=== PATIENT | male | born 1945 | race Caucasian/White ===

== ENCOUNTER 2019-07-12 06:27 | Inpatient (IN) | payer MEDICARE, OTHER ==
[2019-07-12 07:08] LABS: #Basophils 0.1 thou/uL (0.0-0.2); #Eosinphils 0.6 thou/uL (0.0-0.7); #Lymphocytes 1.7 thou/uL (1.20-3.40); #Monocytes 1.1 thou/uL (0.11-0.59); #Neutrophils 9.5 thou/uL (1.40-6.50); %Basophils 0.6 % (0.0-1.0); %Eosinophils 4.4 % (0.0-10.0); %Lymphocytes 13.4 % (21.0-51.0); %Monocytes 8.5 % (0.0-10.0); %Neutrophils 73.1 % (42.0-75.0); Hemoglobin 10.3 g/dL (14.0-18.0); Mean Corpuscular HGB CONC 31.5 g/dL (32.0-36.0); Mean Corpuscular Hemoglobin 27.7 pg (27.0-31.0); Mean Platelet Volume 7.1 fL (7.4-10.4); Platelet Count 400 thou/uL (130-400); Red Blood Cell (RBC) Count 3.73 mill/uL (4.70-6.10)
[2019-07-12 07:28] LABS: ALT (SGPT) 10 U/L (8-55); AST (SGOT) 15 U/L (5-34); Albumin 3.7 g/dL (3.4-4.8); Alkaline Phosphatase 116 U/L (40-110); Anion Gap 12 mmol/L (10-20); BUN (Urea Nitrogen) 26 mg/dL (8.4-25.7); Bilirubin, Total 0.5 mg/dL (0.2-1.2); Calc. Creatinine Clearance 0 mL/min (70-130); Carbon Dioxide 26 mmol/L (23-31); Chloride 102 mmol/L (98-107); Estimated GFR-MDRD 45; Globulin 3.8 g/dL (2.4-3.5); Glucose 106 mg/dL (83-110); Lipase 17 U/L (8-78); Potassium 4.7 mmol/L (3.5-5.1); Protein, Total 7.5 g/dL (5.8-8.1); Sodium 135 mmol/L (136-145)
[2019-07-12 07:33] LABS: Calcium 14.4 mg/dL (7.8-10.44)
[2019-07-12 08:13] LABS: Clarity Turbid (Clear); Leukocyte Unable to Interpret Leu/uL (Negative)
[2019-07-12 08:14] LABS: Bilirubin Unable to Interpret (Negative); Blood, Urine Unable to Interpret (Negative); Glucose, Urine (Dipstick) Unable to Interpret mg/dL (Negative); Nitrite Unable to Interpret (Negative); Protein, Urine (Dipstick) Unable to Interpret mg/dL (Neg-Trace); Urobilinogen UNABLE TO INTERPRET mg/dL (Less than 2)
[2019-07-12 08:18] LABS: Bacteria/HPF None Seen HPF (None Seen); RBC/HPF Greater than 50 HPF (0-3); Squamous Epithelial 0-3 HPF (0-3)
--- NOTE | 2019-07-12 08:50 | PDOC.FPRHP ---
- History of Present Illness Chief Complaint: Abdominal pain, Hematuria, Hematochezia History of Present Illness: Patient is a 74 yo male who presented to the [facility] ED earlier today with complaint of lower abdominal pain ongoing for 2 weeks. For the past several days he has also noted gil blood when he urinates as well as bright red blood with bowel movements. Denies dysuria but states he does not feel his bladder fully empties. He notes weakness, fatigue over the last few weeks with one fall. He has history of a prostatectomy 14 years ago. He has seen Dr. Brower for urinary incontinence as was set to see him at the beginning of August. PCP: [facility] ED Course: In the ED the pt was found to have a Hgb ~10. He was found to have liver, bladder, renal masses. - Allergies/Adverse Reactions Allergies Allergy/AdvReac Type Severity Reaction Status Date / Time No Known Allergies Allergy Verified 12/04/12 15:10 - Home Medications Medication Instructions Recorded Confirmed Type Esomeprazole Magnesium [Nexium] 40 mg PO DAILY 12/04/12 07/12/19 History Simvastatin [Zocor] 40 mg PO HS 12/04/12 07/12/19 History Fexofenadine HCl [Swetha] 180 mg PO DAILY PRN 05/03/13 07/12/19 History Glucosam/Daniel-Col.Cplx/D3/C/Mn 1 cap PO DAILY 05/03/13 07/12/19 History [Xvbcrbybdnd-Qhauweymszu-Y8 Cap] Multivitamin [Multivitamins] 1 cap PO DAILY 05/03/13 07/12/19 History Naproxen 250 mg PO BID PRN 05/03/13 07/12/19 History Eldora-3S/DHA/EPA/Fish Oil [Fish 1 cap PO DAILY 05/03/13 07/12/19 History Oil 1,200 mg Softgel] Ventolin HFA Inhaler [Proventil 1 puff INH Q4HR PRN 05/03/13 07/12/19 History HFA Inhaler] Furosemide [Lasix] 20 mg PO DAILY 07/12/19 07/12/19 History Potassium Chloride 10 meq PO DAILY 07/12/19 07/12/19 History - History PMHx: HTN, HLD, GERD, Anxiety PSHx: Cervical fusion & Laminectomy in April 2013; bilateral cataracts, abdominal hernia repair, open prostatectomy FHx: Mother - lung cancer w/o hx of smoking Social: Former smoker, denies EtOH or illicit drug use - Review of Systems General: reports: weight/appetite/sleep changes. denies: fever/chills Eyes: denies: eye pain, vision changes ENT: denies: nasal congestion, rhinorrhea Respiratory: denies: cough, congestion, shortness of breath Cardiovascular: denies: chest pain, palpitation, edema Gastrointestinal: reports: nausea, constipation, abdominal pain. denies: vomiting, diarrhea Genitourinary: reports: incontinence. denies: dysuria Skin: denies: rashes, lesions Musculoskeletal: denies: pain, tenderness Neurological: reports: numbness, weakness - Vital signs BP: 159/94 HR: 92 RR: 16 Tmax: 98.2 Pox: 99% on RA Wt: 93 kg - Physical Exam Constitutional: NAD, awake, alert and oriented HEENT: normocephalic and atraumatic, PERRLA, EOMI Neck: no LAD, no JVD Heart: RRR, normal S1/S2, no edema Lungs: CTAB, no respiratory distress, good air movement Abdomen: soft, bowel sounds present, no masses/distention -Abdomen: suprapubic tenderness Musculoskeletal: normal tone, ROM grossly normal Neurological: no focal deficit, CN II-XII intact Skin: no rash/lesions, good turgor Heme/Lymphatic: no purpura, no petechia Psychiatric: normal mood and affect, good judgment and insight FMR H&P: Results - Labs Result Diagrams: 07/12/19 12:13 07/12/19 06:58 Lab results: WBC 13.0 thou/uL (4.8-10.8) H 07/12/19 06:58 Hgb 10.3 g/dL (14.0-18.0) L 07/12/19 06:58 Hct 32.8 % (42.0-52.0) L 07/12/19 06:58 MCV 88.0 fL (78.0-98.0) 07/12/19 06:58 Plt Count 400 thou/uL (130-400) 07/12/19 06:58 Neutrophils % 73.1 % (42.0-75.0) 07/12/19 06:58 Sodium 135 mmol/L (136-145) L 07/12/19 06:58 Potassium 4.7 mmol/L (3.5-5.1) 07/12/19 06:58 Chloride 102 mmol/L (98-107) 07/12/19 06:58 Carbon Dioxide 26 mmol/L (23-31) 07/12/19 06:58 BUN 26 mg/dL (8.4-25.7) H 07/12/19 06:58 Creatinine 1.53 mg/dL (0.7-1.3) H 07/12/19 06:58 Glucose 106 mg/dL (83-110) 07/12/19 06:58 Calcium 14.4 mg/dL (7.8-10.44) H* 07/12/19 06:58 Total Bilirubin 0.5 mg/dL (0.2-1.2) 07/12/19 06:58 AST 15 U/L (5-34) 07/12/19 06:58 ALT 10 U/L (8-55) 07/12/19 06:58 Alkaline Phosphatase 116 U/L (40-110) H 07/12/19 06:58 Serum Total Protein 7.5 g/dL (5.8-8.1) 07/12/19 06:58 Albumin 3.7 g/dL (3.4-4.8) 07/12/19 06:58 Lipase 17 U/L (8-78) 07/12/19 06:58 Urine Ketones Unable to Interpret mg/dL (Negative) 07/12/19 07:22 Urine Blood Unable to Interpret (Negative) 07/12/19 07:22 Urine Nitrite Unable to Interpret (Negative) 07/12/19 07:22 Ur Leukocyte Esterase Unable to Interpret Romel/uL (Negative) 07/12/19 07:22 Urine RBC Greater than 50 HPF (0-3) A 07/12/19 07:22 Urine WBC 4-6 HPF (0-3) A 07/12/19 07:22 Ur Squamous Epith Cells 0-3 HPF (0-3) 07/12/19 07:22 Urine Bacteria None Seen HPF (None Seen) 07/12/19 07:22 - Radiology Interpretation CT scan - abdomen Status: image reviewed by me, report reviewed by me (invasive renal cell carcinoma with possible thrombus in vein) FMR H&P: A/P - Problem List (1) Renal mass Current Visit: Yes Status: Acute Code(s): N28.89 - OTHER SPECIFIED DISORDERS OF KIDNEY AND URETER (2) Hypertension Current Visit: Yes Status: Acute Code(s): I10 - ESSENTIAL (PRIMARY) HYPERTENSION Qualifiers: Hypertension type: essential hypertension Qualified Code(s): I10 - Essential (primary) hypertension (3) Acute blood loss anemia Current Visit: Yes Status: Acute Code(s): D62 - ACUTE POSTHEMORRHAGIC ANEMIA (4) Hematuria Current Visit: Yes Status: Acute Code(s): R31.9 - HEMATURIA, UNSPECIFIED (5) Hematochezia Current Visit: Yes Status: Acute Code(s): K92.1 - MELENA (6) Hypercalcemia of malignancy Current Visit: Yes Status: Acute Code(s): E83.52 - HYPERCALCEMIA - Plan Patient is a 74 yo male who presents with abdominal pain, hematuria, and hematochezia is found to have renal mass highly suspicious for malignancy: #Renal Mass, right -highly suspicious for invasive renal cell carcinoma -CT abd/pelvis: renal masses bilaterally with thrombus extension in renal vein -Consult Urology: he is known to Dr. Brower although he is not residential collections, appreciate rec's -Pt has seen Dr. Brian Brower, Urologist in the past, will try to contact office for records -Consult Onc: appreciate rec's -Lactic acid WNL -WBC 13.0; UA with gil blood, >50 RBCs -BUN 26, Cr 1.53 -monitor AM CMP # Gil blood per penis -Follow up with urology as pt has hx of urethral strictures and prostatectomy #Anemia -reports Hematuria, Hematochezia -likely 2/2 above -admission H/H is 10.3/32.8, MCV 88 -plan to type & screen -monitor serial H/H - replace as needed #Hypercalcemia -admission Ca 14.4 -monitor with serial AM labs, PTH pending, administer Zoledronic acid if elevated after fluids given -likely due to malignancy -NS 200 mls/hr #YEIMI vs CKD -monitor, fluids -repeat labs in am #Hypertension -continue lisinopril -held lasix, potassium as he has noted filled prescription #GERD -continue home meds #Anxiety -continue home meds #HLD - continue home meds Diet: HH diet VTE: SCDs, hold anticoagulation pending surgical eval Code status: PCP: none Dispo: Stable, admit to inpatient on oncology unit. Plan to consult Urology and Onc, appreciate recs. Anticipate LOS >48 hrs. FMR H&P: Upper Level - Plan Date/Time: 07/12/19 0849 IRocío, DO, have evaluated this patient and agree with findings/plan as outlined by international banker resident. Pertinent changes/additions are listed here. Pt is a 74 yo M with PMH of prostate cancer s/p radical prostatectomy, HTN, HLD , presenting for 2wk of fatigue and several days of constipation with onset of hematuria today. In the ED, large renal mass is seen concerning for new malignancy. VS: T98.6, P76, R18, O296%RA, BP148/93 PE: Gen: NAD HEENT: Moist MM, no LAD Heart: RRR, no murmurs or extra sounds. Distal pulses 2+ Lungs: CTAB, no wheezing. No increased work of breathing Abd: soft, nontender, BS+ Ext: no cyanosis or edema Skin: no rashes Psych: AOx3 Pertinent Labs/Imaging: WBC- 13.0 H/H- 10.3/32.8 BUN/Cr- 26/1.53, GFR 45 Ca 14.4 Alk Phos 116 UA: Red, turbid, Greater than 50 RBC CTabd: Findings highly suspicious for b/l renal cell carcinomas with tumor thrombus in R renal vein, inferior vena cava, and R renal pelvis. 18mm low density lesion in the liver is suspicious and bladder masses suspicious for malignancy. 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 with gross Hematuria: -H/H 10, nursing reports gil bleeding upon standing, will get stat H/H and type and cross 2 units -consult oncology and urology for treatment options -attempt double lumen smith by nursing staff for possible CBI but does have hx of urethral stricture and radical prostatectomy so may need urology placement Hypercalcemia 2/2 Malignancy: -corrected calcium 14.4 -1L NS ordered in ED, NS @ 200ml/hr -consider Zolendronic Acid x1 dose -Serial Ca YEIMI vs CKD: -FeUrea to help determine prerenal vs intrinsic HTN: -awaiting med rec -hold home meds for now with bleeding and monitor BP HLD: -awaiting med rec -continue home meds Dispo: stable now but guarded prognosis, place inpatient, likely >48h stay DVT PPx: SCD GI PPx: none Addendum - Attending - Attending Attestation Date/Time: 07/12/19 1440 I personally evaluated the patient and discussed the management with Dr. Franco /Naseem. I agree with the History, Examination, Assessment and Plan documented above with any addition or exceptions noted below. MRI brain and CT chest w/ contrast for staging. suspect renal cell carcinoma with heavy metastatic burden. I suspect he has bone mets somewhere given his hyper calcemia.Will continue NS and recheck calcium this afternoon. If not responding, will give zolondronic acid. Urology and Heme/Onc consulted. Will also consult palliative care. Awaiting recommendations.
[2019-07-12 09:13] LABS: INR-International Normal Ratio 1.1; PTT 30.8 sec (22.9-36.1); Prothrombin Time 14.6 sec (12.0-14.7)
--- NOTE | 2019-07-12 09:26 | CT ---
CT ABDOMEN AND PELVIS WITH IV CONTRAST: HISTORY: Lower abdominal pain, hematuria, bright red rectal bleeding. FINDINGS: There is evidence of old granulomatous disease in the visualized portions of the chest. Mild depende nt changes are noted in the lung bases posteriorly. There are calcified granulomas in the liver and spleen. There is a low-density 18 mm lesion in the anterior aspect of the left lobe of the liver whi ch does not meet CT criteria for a simple cyst. No calcified gallstones are seen. The pancreas and left adrenal gland are normal. There is an 11 x 11 x 14 cm heterogeneously enhancing mass arising from the superior pole of the righ t kidney. Tumor thrombus extends into the right renal vein, IVC, and the right renal pelvis. No def inite involvement of the right adrenal gland is seen. There are cysts in the right kidney. Also not ed is an enhancing mass in the inferior aspect of the left kidney measuring 4 x 3.5 x 5 cm. No hydro ureteral nephrosis is seen on either side. There is a 3.5 cm mass arising from the right posterior w all of the urinary bladder and 7 mm thickening of the posterior wall of the urinary bladder. There i s a fat plane within the rectum and the posterior all of the urinary bladder is not definitely seen. No free air, free fluid, or lymphadenopathy is seen in the abdomen or pelvis. The small bowel loops are not abnormally dilated. There is fecal material in the colon and rectum. There is colonic dive rticulosis. There are postop changes in the lower abdomen and pelvis. A small left fat-containing i nguinal hernia is present. There are degenerative changes in the spine. There are pars articularis defects at the L5 level with grade I anterolisthesis of L5 over S1. No destructive bony lesions are identified. IMPRESSION: 1. Findings are highly suspicious for bilateral renal cell carcinomas with tumor thrombus in the rig ht renal vein, inferior vena cava, and the right renal pelvis. 2. An 18 mm low-density lesion in the liver is suspicious. 3. Bladder masses are suspicious for malignancy. 4. Colonic diverticulosis. 5. Old granulomatous disease. 6. Right renal cysts. Findings are reported to Dr. Wilkins in the emergency room at 8:38 a.m. [facility] [place] [facility]
[2019-07-12] MEDS ORDERED: Iopamidol 370 76% 100 ML VIAL ONE (10:05)
[2019-07-12] MEDS ORDERED: Ondansetron PF 4 MG/2 ML Vial IVP PRN (11:38)
[2019-07-12] MEDS ORDERED: Calcium Carbonate 500 MG ChewTAB PO PRN (11:38)
[2019-07-12 11:47] VITALS: BMI 31.4
[2019-07-12] MEDS ORDERED: Lactated Ringer's 1,000 ML IV SCH (12:00)
[2019-07-12 12:19] LABS: Hemoglobin 11.1 g/dL (14.0-18.0)
[2019-07-12] MEDS ORDERED: Sodium Bicarbonate 2.5 MEQ/5 ML VIAL ONE (15:31)
[2019-07-12] MEDS: Sodium Chloride 0.9% 1,000 ML IV SCH ×3 (15:45→23:59)
[2019-07-12 16:29] LABS: Hemoglobin 11.4 g/dL (14.0-18.0)
[2019-07-12 16:52] LABS: Anion Gap 15 mmol/L (10-20); Calc. Creatinine Clearance 54 mL/min (70-130); Carbon Dioxide 22 mmol/L (23-31); Chloride 103 mmol/L (98-107); Estimated GFR-MDRD 45; Glucose 93 mg/dL (83-110); Potassium 4.5 mmol/L (3.5-5.1); Sodium 135 mmol/L (136-145)
--- NOTE | 2019-07-12 16:52 | CT ---
CT-guided right kidney mass biopsy HISTORY: Large right kidney mass. FINDINGS: After explaining the procedure and answering all questions, limited CT imaging was performe d with the patient prone. Sterile technique, buffered local anesthesia, CT guidance, and a right posterior approach were used t o carefully advance the tip of a 17-gauge trocar needle into the lateral aspect of the large right renal mass. Position was confirmed with CT. A total of 4 18-gauge core biopsy specimens were obtained and submitted to Dr. Granger from pathology who confirmed specimen adequacy. Needle was removed. No evidence of complication. Patient tolerated the procedure well and was returne d in unchanged condition. IMPRESSION : Technically successful right renal mass biopsy. Pathology is pending.
[2019-07-12 17:01] LABS: BUN (Urea Nitrogen) 24 mg/dL (8.4-25.7)
[2019-07-12] MEDS ORDERED: Zoledronic Acid 4 MG in Sodium Chloride 0.9% 100 ML IVPB SCH (17:30)
--- NOTE | 2019-07-12 18:19 | PRG ---
DATE OF SERVICE: 07/12/2019 PROCEDURE: Holbrook catheter placement CHIEF COMPLAINT: Urinary retention. Under sterile conditions, an 18-Vietnamese Holbrook catheter was carefully guided through the urethra and with some difficulty passed through what I presume is a bladder neck contracture. The bladder was then entered and light red urine drained. I completely drained the bladder and then irrigated with about 200 mL of sterile water. I do not irrigate out any clots. The patient tells me that he did urinate out a few clots throughout the afternoon. 10 mL were instilled in the Holbrook balloon. It was connected to bag drainage. Job ID: [id number]
[2019-07-12] MEDS: Atorvastatin Calcium 20 MG TAB PO SCH (20:35)
--- NOTE | 2019-07-13 00:24 | CON ---
DATE OF CONSULTATION: 07/12/2019 REASON FOR CONSULT: Renal mass. CHIEF COMPLAINT: Abdominal pain. HISTORY OF PRESENT ILLNESS: This is a 74-year-old male, who I have seen recently in my office for history of radical prostatectomy at [facility] for prostate cancer about 14 years ago. He seems to have developed a slight bladder neck contracture. However, I was able to easily pass an 18-Korean catheter at his first visit and he passed a void trial at his second visit without issue. He had followup planned for August 07. He has been admitted to the hospital after developing right-sided abdominal pain over the last few weeks and culminating an episode of gross hematuria this morning. He endorses mild nausea but denies chest pains, headaches, fevers. He does endorse loss of appetite and weight loss recently. CT scan in the emergency room shows a large right renal mass with IVC involvement and what appears to be three small masses in the left kidney. He may also have masses in his bladder, although this is more likely blood clot. PAST MEDICAL HISTORY: Hypertension, reflux, anxiety, prostate cancer. PAST SURGICAL HISTORY: Cervical fusion and laminectomy, cataracts, abdominal hernia repair, prostatectomy. HOME MEDICATIONS: Reviewed. No pertinent urology medications. ALLERGIES: NO KNOWN ALLERGIES. FAMILY HISTORY: Reviewed, noncontributory. SOCIAL HISTORY: Former smoker. No substance abuse. REVIEW OF SYSTEMS: Ten-point review of systems is negative except as mentioned in my HPI. PHYSICAL EXAMINATION: VITAL SIGNS: Afebrile, slightly hypertensive, otherwise vitals are stable. GENERAL: No acute distress, conversant. HEENT: Head, normocephalic and atraumatic. Eyes; extraocular movements intact. Sclerae are nonicteric. NECK: Supple. Trachea midline. HEART: Regular rate and rhythm. Breathing unlabored. Symmetric chest expansion. ABDOMEN: Soft, tender over right side with palpable mass, nondistended. : Normal phallus, testicles present in scrotum. No blood at meatus. No flank tenderness. SKIN: Warm and dry. NEUROLOGIC: Alert and oriented x3. EXTREMITIES: Without clubbing, cyanosis, or edema. PSYCHIATRIC: Normal mood and affect. LABORATORY DATA: Hemoglobin 10.3 on admission, 11.4 repeated this afternoon. Chemistry, creatinine 1.53, potassium normal, calcium elevated at 14.0. Postvoid bladder scan 328. IMAGING: CT reviewed showing large right renal mass with clot in the renal pelvis and thrombus extending through the renal vein into the IVC. There are two or three distinct masses in the left kidney, two in the inferior pole and one possible in the superior pole. Two masses in the bladder, possibly blood clot. Small lesion in the liver. ASSESSMENT: Neoplasm of uncertain behavior of the right and left kidneys, likely renal cell carcinoma, gross hematuria, bladder tumors, history of prostatectomy, bladder neck contracture, urinary retention, hypercalcemia. PLAN: I have ordered a CT of the head and chest, as well as bone scan to complete imaging workup. I have also arranged for a renal biopsy to be performed. The patient will likely require targeted therapy versus immunotherapy depending on the biopsy results from today. He will require GI consult for his rectal bleeding. Holbrook catheter was placed, which will be dictated separately. This will remain for at least a few days. Cystoscopy to be performed in an outpatient setting, I think bladder tumor is unlikely, especially given his gross hematuria and blood clots. Given that he has bilateral renal masses, surgical intervention will likely require referral to tertiary center given the extreme complexity of the case. I have coordinated care with Dr. Peng and communicated my plan to the admitting physician service. TIME SPENT: Greater than 90 minutes spent in the patient's care. Job ID: [id number] MTDD
[2019-07-13] MEDS: Acetaminophen 325 MG TAB PO PRN ×3 (00:50→20:06)
[2019-07-13 03:40] LABS: #Eosinphils 0.5 thou/uL (0.0-0.7); #Lymphocytes 1.8 thou/uL (1.20-3.40); #Monocytes 0.9 thou/uL (0.11-0.59); #Neutrophils 9.4 thou/uL (1.40-6.50); %Basophils 0.4 % (0.0-1.0); %Lymphocytes 14.2 % (21.0-51.0); %Monocytes 7.4 % (0.0-10.0); Hemoglobin 9.7 g/dL (14.0-18.0); Mean Corpuscular HGB CONC 32.3 g/dL (32.0-36.0); Mean Corpuscular Hemoglobin 28.1 pg (27.0-31.0); Mean Platelet Volume 7.2 fL (7.4-10.4); Platelet Count 360 thou/uL (130-400); RBC Distribution Width 13.8 % (11.5-14.5); Red Blood Cell (RBC) Count 3.46 mill/uL (4.70-6.10); White Blood Cell (WBC) Count 12.7 thou/uL (4.8-10.8)
[2019-07-13 04:09] LABS: ALT (SGPT) 10 U/L (8-55); AST (SGOT) 15 U/L (5-34); Albumin 3.2 g/dL (3.4-4.8); Alkaline Phosphatase 101 U/L (40-110); Anion Gap 11 mmol/L (10-20); BUN (Urea Nitrogen) 24 mg/dL (8.4-25.7); Bilirubin, Total 0.5 mg/dL (0.2-1.2); Calc. Creatinine Clearance 54 mL/min (70-130); Carbon Dioxide 24 mmol/L (23-31); Chloride 106 mmol/L (98-107); Estimated GFR-MDRD 44; Globulin 3.3 g/dL (2.4-3.5); Glucose 94 mg/dL (83-110); Potassium 4.5 mmol/L (3.5-5.1); Protein, Total 6.5 g/dL (5.8-8.1); Sodium 136 mmol/L (136-145)
[2019-07-13 04:27] LABS: Calcium 12.1 mg/dL (7.8-10.44)
[2019-07-13] MEDS: Sodium Chloride 0.9% 1,000 ML IV SCH ×5 (05:10→19:59)
--- NOTE | 2019-07-13 06:17 | PDOC.FM ---
- Subjective Subjective: Pt is unchanged from yesterday. He received his biopsy, pending results. He had good urine output. He has not had a BM as of yet but did have a desire today. - Objective Vital Signs & Weight: Vital Signs (12 hours) Temp Pulse Resp BP Pulse Ox 07/13/19 05:00 138/67 07/13/19 03:59 98.1 F 83 16 151/73 H 93 L 07/12/19 23:57 98.7 F 84 16 142/67 H 95 07/12/19 20:00 94 L 07/12/19 19:00 98.6 F 89 18 140/71 94 L Weight Weight 90.855 kg I&O: 07/11/19 07/12/19 07/13/19 06:59 06:59 06:59 Intake Total 3670 Output Total 1850 Balance 1820 Result Diagrams: 07/13/19 03:21 07/13/19 03:21 Phys Exam - Physical Examination Constitutional: NAD HEENT: moist MMs, sclera anicteric no respiratory distress, no wheezing Neurological: non-focal, moves all 4 limbs Psychiatric: normal affect, A&O x 3 Skin: no rash, normal turgor Dx/Plan (1) Renal mass Code(s): N28.89 - OTHER SPECIFIED DISORDERS OF KIDNEY AND URETER Status: Acute (2) Hypertension Code(s): I10 - ESSENTIAL (PRIMARY) HYPERTENSION Status: Acute Qualifiers: Hypertension type: essential hypertension Qualified Code(s): I10 - Essential (primary) hypertension (3) Acute blood loss anemia Code(s): D62 - ACUTE POSTHEMORRHAGIC ANEMIA Status: Acute (4) Hematuria Code(s): R31.9 - HEMATURIA, UNSPECIFIED Status: Acute (5) Hematochezia Code(s): K92.1 - MELENA Status: Acute (6) Hypercalcemia of malignancy Code(s): E83.52 - HYPERCALCEMIA Status: Acute - Plan Plan: Patient is a 74 yo male who presents with abdominal pain, hematuria, and hematochezia is found to have renal mass highly suspicious for malignancy: # Renal Mass, right > left # 18 mm Liver Lesion -highly suspicious for invasive renal cell carcinoma -CT abd/pelvis: renal masses bilaterally with thrombus extension in renal vein -Consult Urology: he is known to Dr. Brower- pending biopsy results. He potentially will need referral to tertiary center. Dr. Brower has been in contact with Dr. Peng. -Consult Onc: appreciate rec's -Lactic acid WNL -WBC 13.0; UA with gil blood, >50 RBCs -BUN 26, Cr 1.53 -monitor AM CMP # Gil blood per penis -Urology believes bladder lesion seen on CT is clot -smith placed #Hematochezia -pending SAADIA, GI consult; appreciate recs # Normocytic Anemia likely 2/2 malignancy -admission H/H is 10.3/32.8, MCV 88. Pt has been type and screen but repeat H/H did not show decrease. -iron deficiency iron and anemia of chronic disease based on labs # Hypercalcemia -admission Ca 14.4 -> 12.0 -Zoledronic acid given yesterday, continue with fluids # YEIMI vs CKD -monitor, fluids - not improved with fluids. Could be pt's baseline. -repeat labs in am # Hypertension -held lisinopril with YEIMI -held lasix, potassium as he has noted filled prescription # GERD -continue home meds # Anxiety -continue home meds # HLD - continue home meds Diet: HH diet VTE: SCDs, hold anticoagulation pending surgical eval Code status: DNR PCP: none Dispo: Stable, admit to inpatient on oncology unit Anticipate LOS >48 hrs. Addendum - Attending - Attending Attestation Date/Time: 07/13/19 0187 I personally evaluated the patient and discussed the management with Dr. Franco. I agree with the History, Examination, Assessment and Plan documented above with any addition or exceptions noted below. Biopsy yesterday. awaiting path. GI consult today per Urology to evaluate for colonic involvement.
[2019-07-13 07:36] LABS: Iron 22 ug/dL (65-175); Iron Binding Capacity, Total 240 mcg/dL (261-462)
[2019-07-13 08:06] LABS: Ferritin 382.01 ng/mL (22-322)
[2019-07-13] MEDS ORDERED: [UNRECOGNIZED DRUG - OTHER] PO SCH (09:00)
[2019-07-13] MEDS: Fish Oil 1,000 MG CAP PO SCH (09:33)
[2019-07-13] MEDS: Senokot S 8.6-50 MG TAB PO PRN (09:33)
[2019-07-13] MEDS: Multivit, Therapeutic 1 TAB PO SCH (09:33)
[2019-07-13] MEDS ORDERED: Iopamidol 370 76% 100 ML VIAL ONE (10:12)
--- NOTE | 2019-07-13 10:43 | CT ---
CT HEAD WITH AND WITHOUT CONTRAST: Date: 07/13/2019 INDICATION: Renal carcinoma staging. History of renal cancer. Assess for metastasis. No comparison. FINDINGS: There is mild cortical volume loss. No evidence of intracranial hemorrhage seen on the precontrast st udy. There is no evidence of mass or infarct. No abnormal enhancement identified on postcontrast study. The paranasal sinuses appear clear. The bony calvarium is unremarkable. IMPRESSION: 1. No acute process. No evidence of metastatic lesion seen by CT. 2. MRI with and without contrast is a more sensitive exam if brain metastasis is suspected. POS: AGW
--- NOTE | 2019-07-13 10:52 | PRG ---
DATE OF SERVICE: 07/13/2019 CHIEF COMPLAINT: Right-sided abdominal pain. SUBJECTIVE: No acute changes overnight. The patient reports pain from the renal biopsy site, which was performed yesterday about 3 to 4/10 at times. He also endorses nausea and lack of appetite. He denies difficulty breathing, chest pain, bladder pain, or fevers. OBJECTIVE: VITAL SIGNS: Afebrile. Vitals are stable. Good urine output clearing well. GENERAL: No acute distress, conversant. LUNGS: Unlabored breathing, symmetric chest expansion. HEART: Regular rate and rhythm. ABDOMEN: Soft, tender over the right side with palpable mass, nondistended. Right flank tender around the biopsy site. No significant bruising or signs of infection No suprapubic tenderness. Holbrook catheter in good position draining clear urine. EXTREMITIES: Without clubbing, cyanosis, or edema. NEUROLOGIC: Alert and oriented x3. PSYCHIATRIC: Normal mood and affect. LABORATORY DATA: Creatinine stable at 1.5, hemoglobin largely stable at 9.7. IMAGING DATA: The patient has just returned from CT; reports are not available yet. ASSESSMENT: 1. Large right renal mass with IVC involvement. 2. Several small renal mass in the left kidney. 3. Hypercalcemia likely secondary due to malignancy. 4. Rectal bleeding. 5. Chronic kidney disease. PLAN: 1. Awaiting biopsy results. 2. Oncology to see the patient today. 3. Bone scan scheduled for this afternoon. 4. Holbrook catheter will remain until late next week. At this point he will need cystoscopy performed to evaluate the bladder neck to check to make sure that the masses seen on CT were indeed blood clots vs tumors. 5. There is likely no role for surgical intervention at this juncture. The patient will require targeted therapy versus immunotherapy. Due to the complexity of the case with bilateral renal masses and the need for right radical nephrectomy with IVC thrombectomy, the patient will be referred to MD Cobian when time comes for surgical consideration. Job ID: [id number] [facility]
--- NOTE | 2019-07-13 10:57 | CT ---
CT CHEST WITH CONTRAST: INDICATION: Renal cell carcinoma. Assess for metastasis. FINDINGS: The lungs are well aerated and clear. There is no evidence of pulmonary nodule or mass. There is a calcified granuloma in the anterior right mid lung field. The mediastinum is unremarkable. Small calcified mediastinal and right hilar lymph nodes are seen in dicating a prior granulomatous process. No axillary adenopathy. The osseous structures appear unremarkable. There are pedicle screws in the lower cervical and upper thoracic spine. IMPRESSION: 1. Evidence of prior granulomatous process. 2. No evidence of pulmonary metastasis. POS: AGW
[2019-07-13] MEDS ORDERED: Prevnar 13-Val Conj/PF 0.5 ML SYRINGE IM ONE (12:30)
[2019-07-13 13:42] LABS: Creatinine, Urine 57.76 mg/dL (63-166)
--- NOTE | 2019-07-13 14:21 | CT ---
CT-guided right kidney mass biopsy HISTORY: Large right kidney mass. FINDINGS: After explaining the procedure and answering all questions, limited CT imaging was performe d with the patient prone. Sterile technique, buffered local anesthesia, CT guidance, and a right posterior approach were used t o carefully advance the tip of a 17-gauge trocar needle into the lateral aspect of the large right renal mass. Position was confirmed with CT. A total of 4 18-gauge core biopsy specimens were obtained and submitted to Dr. Granger from pathology who confirmed specimen adequacy. Needle was removed. No evidence of complication. Patient tolerated the procedure well and was returne d in unchanged condition. IMPRESSION : Technically successful right renal mass biopsy. Pathology is pending. Transcribed Date/Time: 07/13/2019 2:21 PM
--- NOTE | 2019-07-13 15:07 | NM ---
Radionucleotide bone scan HISTORY: Renal cell carcinoma. Staging. History of prostate cancer. FINDINGS: Physiologic uptake of radiotracer. Degenerative type uptake at the shoulders, sternoclavicu lar joints, knees, and ankles. Photopenic defect of the mouth suggests dental hardware. No pathologic areas of activity. IMPRESSION : No scintigraphic evidence of osteoblastic metastases.
--- NOTE | 2019-07-13 17:35 | CON ---
DATE OF CONSULTATION: REASON FOR CONSULTATION: Renal mass. HISTORY OF PRESENT ILLNESS: Mr. Moscoso is a 74-year-old gentleman with past medical history of prostate cancer and radical prostatectomy at [facility]. He presented to the emergency room yesterday for gross hematuria, nausea, and fatigue. He had some weight loss, although he cannot tell me how much. In the emergency room, he underwent a CT scan of the abdomen and pelvis. There was an 11 x 11 x 14 heterogeneous mass in the superior pole of the right kidney. Tumor thrombus extending into the right renal vein, IVC, and the right renal pelvis. There was an enhancing mass in the inferior aspect of the left kidney, measuring 4 x 3.5 x 5 cm. There was no hydronephrosis. There was a 3.5 cm mass in the right posterior wall of the bladder. He was admitted for further workup. Dr. Brower was consulted, who has seen the patient in the past. He underwent a renal biopsy this morning and had a negative brain CT. Chest CT showed no evidence of pulmonary metastasis. He complains of left lower extremity weakness and poor appetite. He has a Holbrook catheter in place, which was with bloody urine. His calcium on admission was elevated at 14.4. His hemoglobin on admission was 10.3 and is trended down to 9.7 today. PAST MEDICAL HISTORY: 1. Prostate cancer. 2. Hypertension. 3. Reflux. 4. Anxiety. PAST SURGICAL HISTORY: 1. Prostatectomy. 2. Cervical fusion and laminectomy. 3. Abdominal hernia repair. 4. Cataract surgery. ALLERGIES: NO KNOWN DRUG ALLERGIES. HOME MEDICATIONS: 1. Nexium. 2. Swetha. 3. Lasix. 4. Fish oil. 5. Potassium. 6. Zocor. 7. Proventil neb. FAMILY HISTORY: Mother had lung cancer. SOCIAL HISTORY: Former smoker. No alcohol or illicit drug use. REVIEW OF SYSTEMS: A 10-point review of systems is negative except for noted in HPI. PHYSICAL EXAMINATION: VITAL SIGNS: Temperature 98.1, pulse is 100, respiratory rate 18, BP is 144/76, and he is 97% on room air. GENERAL: This is a well-developed, well-nourished male, in no acute distress. HEENT: Normocephalic and atraumatic. Pupils equal and reactive to light. NECK: Supple. CV: Regular rate and rhythm. LUNGS: Clear. ABDOMEN: Nontender and soft. Bowel sounds are positive. EXTREMITIES: No clubbing or cyanosis. SKIN: No rash. NEUROLOGIC: Nonfocal. PERTINENT LABORATORY DATA AND X-RAYS: Current WBCs 12.7, hemoglobin 9.7, hematocrit 30.7, and platelet count is 360,000. He has 74% neutrophils and 14% lymphocytes. PT is 14.6, INR is 1.1, and PTT is 30.8. Sodium is 136, potassium 4.5, chloride 106, CO2 is 24, BUN is 24, creatinine is 1.54, and calcium is 12.1. Iron is 22, TIBC is 240, iron saturation is 9, and ferritin is 382. Total bilirubin is 0.5, AST is 15, ALT is 14, alkaline phosphatase is 101, serum total protein 6.5, albumin 3.2, and globulin 3.3. B12 is 550 and folate is 12. Radiology per HPI. ASSESSMENT: 1. Large right renal mass with likely metastatic disease in the left kidney. 2. Gross hematuria. 3. History of prostate cancer with prostatectomy. 4. Hypercalcemia. DISCUSSION: The patient has had a renal biopsy this morning. His chest CT is negative for metastatic disease as well as he has also had a negative brain CT. He is unable to get an MRI secondary to prior laminectomy. He is due for a bone scan to complete staging. He will need close monitoring of his CBC as his hemoglobin is likely to drop given his hematuria. Depending on pathology, he may need chemotherapy versus immunotherapy. Case has been discussed with Dr. Peng who has also discussed the case with Dr. Brower. We will follow along with the patient and the recommendations once final pathology has been admitted. Thank you for the consult. Job ID: [id number]
[2019-07-13 17:38] LABS: Anion Gap 13 mmol/L (10-20); BUN (Urea Nitrogen) 24 mg/dL (8.4-25.7); Calc. Creatinine Clearance 57 mL/min (70-130); Calcium 11.7 mg/dL (7.8-10.44); Carbon Dioxide 21 mmol/L (23-31); Chloride 106 mmol/L (98-107); Estimated GFR-MDRD 47; Glucose 83 mg/dL (83-110); Potassium 4.3 mmol/L (3.5-5.1); Sodium 136 mmol/L (136-145)
[2019-07-13] MEDS: Atorvastatin Calcium 20 MG TAB PO SCH (20:00)
[2019-07-14] MEDS: Sodium Chloride 0.9% 1,000 ML IV SCH (02:45)
[2019-07-14 04:16] LABS: #Eosinphils 0.5 thou/uL (0.0-0.7); #Lymphocytes 0.9 thou/uL (1.20-3.40); #Monocytes 0.3 thou/uL (0.11-0.59); #Neutrophils 9.7 thou/uL (1.40-6.50); %Basophils 0.4 % (0.0-1.0); %Eosinophils 4.2 % (0.0-10.0); %Lymphocytes 7.5 % (21.0-51.0); %Monocytes 2.9 % (0.0-10.0); Hemoglobin 9.2 g/dL (14.0-18.0); Mean Corpuscular HGB CONC 31.3 g/dL (32.0-36.0); Mean Corpuscular Hemoglobin 27.8 pg (27.0-31.0); Mean Corpuscular Volume 88.7 fL (78.0-98.0); Platelet Count 318 thou/uL (130-400); RBC Distribution Width 14.1 % (11.5-14.5); White Blood Cell (WBC) Count 11.4 thou/uL (4.8-10.8)
[2019-07-14 04:35] LABS: ALT (SGPT) 14 U/L (8-55); AST (SGOT) 24 U/L (5-34); Alkaline Phosphatase 131 U/L (40-110); Anion Gap 9 mmol/L (10-20); BUN (Urea Nitrogen) 24 mg/dL (8.4-25.7); Bilirubin, Total 0.4 mg/dL (0.2-1.2); Calc. Creatinine Clearance 54 mL/min (70-130); Calcium 10.5 mg/dL (7.8-10.44); Carbon Dioxide 24 mmol/L (23-31); Chloride 108 mmol/L (98-107); Estimated GFR-MDRD 45; Globulin 3.2 g/dL (2.4-3.5); Glucose 87 mg/dL (83-110); Potassium 3.9 mmol/L (3.5-5.1); Protein, Total 6.2 g/dL (5.8-8.1); Sodium 137 mmol/L (136-145)
--- NOTE | 2019-07-14 06:02 | PDOC.FM ---
- Subjective Subjective: Pt is doing ok. He has back pain at the site of bx. He did not sleep well overnight. He had a temp w/o overt signs of infection. - Objective Vital Signs & Weight: Vital Signs (12 hours) Temp Pulse Resp BP Pulse Ox 07/14/19 00:10 97.6 F 07/13/19 21:39 100.1 F H 07/13/19 20:06 100.9 F H 107 H 16 144/69 H 92 L 07/13/19 20:00 92 L Weight Admit Weight 90.855 kg Weight 90.855 kg I&O: 07/12/19 07/13/19 07/14/19 06:59 06:59 06:59 Intake Total 3670 680 Output Total 1850 1650 Balance 1820 -970 Result Diagrams: 07/14/19 03:45 07/14/19 03:45 Phys Exam - Physical Examination Constitutional: NAD HEENT: PERRLA, moist MMs Neck: no JVD, full ROM Respiratory: no wheezing, clear to auscultation bilateral Cardiovascular: RRR, no significant murmur Gastrointestinal: soft, non-tender, positive bowel sounds mild distention, no signs of infection at site of bx on R back Musculoskeletal: no edema, pulses present Neurological: non-focal, moves all 4 limbs Psychiatric: A&O x 3 Deviation from normal: affect is blunted, he does appear to have a blunted mood Skin: no rash, cap refill <2 seconds Dx/Plan (1) Renal mass Code(s): N28.89 - OTHER SPECIFIED DISORDERS OF KIDNEY AND URETER Status: Acute (2) Hypertension Code(s): I10 - ESSENTIAL (PRIMARY) HYPERTENSION Status: Acute Qualifiers: Hypertension type: essential hypertension Qualified Code(s): I10 - Essential (primary) hypertension (3) Acute blood loss anemia Code(s): D62 - ACUTE POSTHEMORRHAGIC ANEMIA Status: Acute (4) Hematuria Code(s): R31.9 - HEMATURIA, UNSPECIFIED Status: Acute (5) Hematochezia Code(s): K92.1 - MELENA Status: Acute (6) Hypercalcemia of malignancy Code(s): E83.52 - HYPERCALCEMIA Status: Acute - Plan Plan: Patient is a 74 yo male who presents with abdominal pain, hematuria, and hematochezia is found to have renal mass highly suspicious for malignancy: # Renal Mass, right > left # 18 mm Liver Lesion -highly suspicious for invasive renal cell carcinoma -CT abd/pelvis: renal masses bilaterally with thrombus extension in renal vein -Dr. Brower consulted, appreciate recs -Dr. Peng consulted, appreciate recs -Bone scan negative for osteoblastic lesion, CT Head/Chest negative for mets -Pending Renal Bx -Add tramadol for pain, melatonin and benadryl to help with sleep # Hx of Neck Procedures -Flexeril for neck stiffness # Temperature w/ alleviation s/p tylenol in the setting of an elevated WBC -send urine Cx, blood Cx # Sae blood per penis -Urology believes bladder lesion seen on CT is clot -smtih placed #Hematochezia -SAADIA revealed no internal/external hemorrhoids, GI consult; appreciate recs # Normocytic Anemia likely 2/2 malignancy -monitor H/H in setting of hematuria, hematochezia -iron deficiency iron and anemia of chronic disease based on labs #Constipation -continue with senna # Hypercalcemia -improving -Zoledronic acid given 07/11, continue w/ fluids as pt is tolerating # YEIMI vs CKD -monitor, fluids - not improved with fluids. Could be pt's baseline. -repeat labs in am # Hypertension -held lisinopril with YEIMI -held lasix, potassium as he has noted filled prescription # GERD -continue home meds # Anxiety -continue home meds # HLD - continue home meds Diet: HH diet VTE: SCDs, hold anticoagulation pending surgical eval Code status: DNR PCP: none Dispo: Stable, admit to inpatient on oncology unit Anticipate LOS >48 hrs. Addendum - Attending - Attending Attestation Date/Time: 07/14/19 2683 I personally evaluated the patient and discussed the management with Dr. Franco. I agree with the History, Examination, Assessment and Plan documented above with any addition or exceptions noted below. Calcium down trending. Will hold IVF for now. C-scope w/ GI tomorrow. Awaiting path. I think his Cr is at his baseline.
[2019-07-14] MEDS: Acetaminophen 325 MG TAB PO PRN (07:53)
[2019-07-14] MEDS: Multivit, Therapeutic 1 TAB PO SCH (07:54)
[2019-07-14] MEDS: Fish Oil 1,000 MG CAP PO SCH (07:54)
[2019-07-14] MEDS: Ondansetron ODT 4 MG TAB PO PRN (07:55)
[2019-07-14] MEDS ORDERED: diphenhydrAMINE 25 MG CAP PO PRN (07:59)
[2019-07-14] MEDS ORDERED: traMADol HCl 50 MG TAB PO PRN (07:59)
--- NOTE | 2019-07-14 09:26 | CON ---
DATE OF CONSULTATION: 07/13/2019 REASON FOR CONSULTATION: Hematochezia. HISTORY OF PRESENT ILLNESS: Mr. Jasvir Moscoso is a 74-year-old male, hospitalized with a lower abdominal pain, history of hematochezia, and hematuria. The patient has had a radical prostatectomy, I believe about 7 years ago in [place]. The patient sees Dr. Dennis Ceron, his primary care doctor. He has not seen Dr. Lewis in a while and Dr. Lewis has moved out of town. The patient gives history of anorexia, weight loss, and poor taste. He says he has lost a lot of weight, but does not quantify how much weight he has lost. He came to the ER with abdominal pain, hematuria, and hematochezia. He had an abdominal CAT scan done and was found to have bilateral kidney masses and also possible liver lesion. The impression was that most likely he has renal cell carcinoma. Underwent biopsy of the kidneys and biopsy is pending. He was also seen by Dr. Brower because of hematuria. The patient cannot tell me when was last time he saw his Primary care Doctor. He has been not eating well, has poor appetite and lost some weight. He also has some constipation over the last several days. The last BM was about 5 days ago. A rectal exam done by Dr. Franco does not reveal the rectal mass and hemorrhoids. He complains of generalized weakness, fatigue and low energy. ALLERGIES: NONE. SOCIAL HISTORY: The patient is a former smoker. He drinks alcohol very occasionally. MEDICAL ILLNESSES: 1. Hyperlipidemia. 2. Hypertension. 3. Chronic acid reflux. 4. Chronic anxiety. SURGERIES: 1. Radical prostatectomy. 2. Cervical fusion and laminectomy in 2013. 3. Bilateral cataract surgery. 4. Abdominal hernia repair. FAMILY HISTORY: Both parents had cancer. Mother had lung cancer, but father had some cancer, he does not know the site. MEDICATION LIST: Reviewed. REVIEW OF SYSTEMS: A 10-point system reviewed. CONSTITUTIONAL: History of poor energy, fatigue, tiredness, loss of appetite, bad taste in the mouth and weight loss. No fever or chills. EYES: No diplopia. No impaired vision. EARS: No hearing loss. No discharge or any pain. NOSE: No nosebleed. THROAT: No sore throat. No dysphagia. NECK: No stiffness or any limitation of movement. LUNGS: No chronic coughing, hemoptysis, dyspnea. CARDIOVASCULAR SYSTEM: No chest pain. No palpitation. No dyspnea, orthopnea, or PND. GI: Abdominal pain, loss of appetite, loss of weight, hematochezia. He does not know when was the last colonoscopy done. : History of difficulty urinating and also hematuria. MUSCULOSKELETAL: Not known. NEUROENDOCRINE: Not known. PHYSICAL EXAMINATION: GENERAL: Reveals a very pleasant male appears very comfortable, in no acute distress. VITAL SIGNS: Stable. Afebrile. Pulse is 91, blood pressure 130/76. HEENT: Conjunctivae are clear. NECK: Supple. No adenitis or thyromegaly noted. CARDIOVASCULAR SYSTEM: First and second heart sounds heard. LUNGS: Clear to auscultation. ABDOMEN: Soft. He has some mass over the right lower quadrant more lateral. This is firm and probably measured about 6 to 8 cm. There is also an ill-defined fullness over the left upper quadrant. He is nontender. No other masses felt. EXTREMITIES: Reveal no edema. LABORATORY DATA: On admission 07/12/2019, WBC 13,000, dropping to 12,700 today, hemoglobin 10.3, today, 9.7; hematocrit 32.8, MCV 88, platelet count 400,000; polymorphs 73, lymphocytes 13, monocytes 8. Serum chemistries sodium 136, potassium 4.3, chloride 106, bicarb 21, BUN is 24, creatinine is 1.46, calcium 11.7, bilirubin 0.5, AST 15, ALT 10, alkaline phosphatase is 101, albumin 3.2, platelet level is 382. Iron is 22, TIBC 240. Abdominal CAT scan shows a liver mass and also bilateral kidney mass. He has had a biopsy of the kidney mass yesterday. IMPRESSION: 1. A 74-year-old male with history of abdominal pain, bilateral liver masses, and also history of metastatic liver and kidney cancer. The patient has a history of hematochezia off and on. The patient also complains of change in bowel habits. 2. Hypertension. 3. Hyperlipidemia. 4. Chronic anxiety. 5. Previous radical prostatectomy. 6. Cervical spine surgery. RECOMMENDATIONS: Change diet to clear liquid diet and hopefully can perform a colonoscopy on Tuesday. The patient feels exhausted and very tired and he really does not want to go through another procedure at least for tomorrow. I will prep him tomorrow for a colonoscopy and hopefully, it can be done on Tuesday. Job ID: [id number] MTDD
[2019-07-14] MEDS: Cyclobenzaprine 10 MG TAB PO PRN (10:36)
--- NOTE | 2019-07-14 11:19 | RAD ---
AP CHEST: Date: 07/14/2019 HISTORY: Shortness of breath. FINDINGS: The lung abbasi appear clear. No evidence of infiltrate or vascular congestion. Heart size normal. IMPRESSION: No acute process. POS: AGW
--- NOTE | 2019-07-14 14:51 | EKG ---
Test Reason : Blood Pressure : / mmHG Vent. Rate : 098 BPM Atrial Rate : 098 BPM P-R Int : 174 ms QRS Dur : 096 ms QT Int : 320 ms P-R-T Axes : 022 009 030 degrees QTc Int : 408 ms Normal sinus rhythm Normal ECG Confirmed by THERESE CANSECO ([id number]), visual effects editor EVANGELIST LUO ([id number]) on 07/14/2019 2:50:36 PM Referred By: Confirmed By:THERESE CANSECO
[2019-07-14] MEDS ORDERED: GoLYTELY 4,000 ml Bottle PO SCH (16:00)
--- NOTE | 2019-07-14 17:52 | PRG ---
DATE OF SERVICE: 07/14/2019 SUBJECTIVE: This is a 74-year-old male with hematochezia, hematuria, abdominal pain. The patient was found to have bilateral kidney mass, underwent biopsy 2 days ago. The patient has seen me because of hematochezia. Not bleeding very actively. History of weight loss. The patient is agreeable for colonoscopy. PHYSICAL EXAMINATION: VITAL SIGNS: Temperature 99.5 degrees Fahrenheit, pulse is 92, blood pressure 128/59. CARDIOVASCULAR: Within normal limits. LUNGS: Within normal limits. ABDOMEN: Soft. No organomegaly. He has some masses over the right upper quadrant and also over the left upper abdomen. IMPRESSION: 1. Hematochezia _. 2. Bilateral renal mass, metastatic disease, possibly was possible. PLAN: Colonoscopy tomorrow. Job ID: [id number] MTDD
[2019-07-14] MEDS: Atorvastatin Calcium 20 MG TAB PO SCH (20:39)
[2019-07-14] MEDS: Melatonin 3 MG TAB PO SCH (20:41)
[2019-07-15 03:54] LABS: #Eosinphils 0.8 thou/uL (0.0-0.7); #Lymphocytes 1.6 thou/uL (1.20-3.40); #Monocytes 0.5 thou/uL (0.11-0.59); #Neutrophils 8.1 thou/uL (1.40-6.50); %Basophils 0.4 % (0.0-1.0); %Monocytes 4.9 % (0.0-10.0); %Neutrophils 73.7 % (42.0-75.0); Hemoglobin 8.9 g/dL (14.0-18.0); Mean Corpuscular HGB CONC 31.5 g/dL (32.0-36.0); Mean Corpuscular Hemoglobin 27.5 pg (27.0-31.0); Mean Corpuscular Volume 87.5 fL (78.0-98.0); Mean Platelet Volume 7.2 fL (7.4-10.4); Platelet Count 304 thou/uL (130-400); Red Blood Cell (RBC) Count 3.24 mill/uL (4.70-6.10)
[2019-07-15 04:14] LABS: ALT (SGPT) 26 U/L (8-55); AST (SGOT) 35 U/L (5-34); Albumin 2.9 g/dL (3.4-4.8); Alkaline Phosphatase 182 U/L (40-110); Anion Gap 10 mmol/L (10-20); BUN (Urea Nitrogen) 23 mg/dL (8.4-25.7); Bilirubin, Total 0.3 mg/dL (0.2-1.2); Calc. Creatinine Clearance 67 mL/min (70-130); Calcium 9.6 mg/dL (7.8-10.44); Carbon Dioxide 24 mmol/L (23-31); Chloride 105 mmol/L (98-107); Estimated GFR-MDRD 56; Globulin 3.1 g/dL (2.4-3.5); Glucose 95 mg/dL (83-110); Potassium 3.6 mmol/L (3.5-5.1); Sodium 135 mmol/L (136-145)
--- NOTE | 2019-07-15 06:05 | PDOC.FM ---
- Subjective Subjective: Pt is fatigued. He had bowel prep overnight. He will go for colonoscopy today. Otherwise pt did not have fever overnight but has been given tylenol. - Objective Vital Signs & Weight: Vital Signs (12 hours) Temp Pulse Resp BP Pulse Ox 07/14/19 19:31 98.6 F 107 H 16 160/77 H 97 Weight Admit Weight 90.855 kg Weight 90.855 kg I&O: 07/13/19 07/14/19 07/15/19 06:59 06:59 06:59 Intake Total 3670 680 4800 Output Total 1850 1650 2200 Balance 1820 -970 2600 Result Diagrams: 07/15/19 03:29 07/15/19 03:29 Phys Exam - Physical Examination Constitutional: NAD HEENT: PERRLA, moist MMs Neck: no JVD, full ROM Respiratory: no wheezing, clear to auscultation bilateral Cardiovascular: RRR, no significant murmur Gastrointestinal: soft, no distention Musculoskeletal: pulses present Neurological: non-focal, moves all 4 limbs Psychiatric: normal affect, A&O x 3 Dx/Plan (1) Renal mass Code(s): N28.89 - OTHER SPECIFIED DISORDERS OF KIDNEY AND URETER Status: Acute (2) Hypertension Code(s): I10 - ESSENTIAL (PRIMARY) HYPERTENSION Status: Acute Qualifiers: Hypertension type: essential hypertension Qualified Code(s): I10 - Essential (primary) hypertension (3) Acute blood loss anemia Code(s): D62 - ACUTE POSTHEMORRHAGIC ANEMIA Status: Acute (4) Hematuria Code(s): R31.9 - HEMATURIA, UNSPECIFIED Status: Acute (5) Hematochezia Code(s): K92.1 - MELENA Status: Acute (6) Hypercalcemia of malignancy Code(s): E83.52 - HYPERCALCEMIA Status: Acute - Plan Plan: Patient is a 74 yo male who presents with abdominal pain, hematuria, and hematochezia is found to have renal mass highly suspicious for malignancy: # Renal Mass, right > left # 18 mm Liver Lesion -highly suspicious for invasive renal cell carcinoma -CT abd/pelvis: renal masses bilaterally with thrombus extension in renal vein -Dr. Brower consulted, appreciate recs -Dr. Peng consulted, appreciate recs -Bone scan negative for osteoblastic lesion, CT Head/Chest negative for mets -Pending Renal Bx -Add tramadol for pain, melatonin and benadryl to help with sleep # Hx of Neck Procedures -Flexeril for neck stiffness # Temperature w/ alleviation s/p tylenol in the setting of an elevated WBC -send urine Cx, blood Cx: negative to date # Sae blood per penis -Urology believes bladder lesion seen on CT is clot -smith placed #Hematochezia -SAADIA revealed no internal/external hemorrhoids, GI consult; appreciate recs - colonoscopy today # Normocytic Anemia likely 2/2 malignancy -monitor H/H in setting of hematuria, hematochezia -iron deficiency iron and anemia of chronic disease based on labs #Constipation -continue with senna # Hypercalcemia -WNL -Zoledronic acid given 07/11 # YEIMI vs CKD -repeat labs in am - improved # Hypertension -held lisinopril with YEIMI -held lasix, potassium as he has noted filled prescription # GERD -continue home meds # Anxiety -continue home meds # HLD - continue home meds Diet: NPO then HH diet VTE: SCDs, hold anticoagulation Code status: Full PCP: none Dispo: Stable, admit to inpatient on oncology unit. Consider d/c depending on colonoscopy results. Anticipate LOS >48 hrs. Addendum - Attending - Attending Attestation Date/Time: 07/15/19 1032 I personally evaluated the patient and discussed the management with Dr. Franco. I agree with the History, Examination, Assessment and Plan documented above with any addition or exceptions noted below. Colonoscopy today. Cultures negative to date. No fever overnight and has been w/ o antipyretics for 24 hrs. CXR negative. He has been w/o fever off abx. Procal down trending. Will hold off abx for now and monitor for signs of infection. Awaiting path reports and further recommendations from GI, Onc, and Uro. Likely d/c vs tx in next 2-3 days.
[2019-07-15] MEDS: Fish Oil 1,000 MG CAP PO SCH (08:31)
[2019-07-15] MEDS: Multivit, Therapeutic 1 TAB PO SCH (08:31)
[2019-07-15] MEDS ORDERED: PROPOFOL 200 MG/20 ML VIAL ONE (11:18)
[2019-07-15] MEDS ORDERED: Lidocaine 1% PF 5 ML VIAL ONE (11:18)
[2019-07-15] MEDS ORDERED: Fleet Enema 133 ML BOT PR PRN (15:13)
[2019-07-15] MEDS ORDERED: Fleet Enema 133 ML BOT PR SCH (15:15)
[2019-07-15] MEDS ORDERED: Polyethylene Glycol 3350 17 GM Packet PO PRN (15:29)
--- NOTE | 2019-07-15 16:44 | PDOC.EVN ---
Event Note - Event Note Event Note: urine culture positive for staph. starting vanc until sensitivities return.
[2019-07-15] MEDS: Vancomycin HCl 1.75 GM in Sodium Chloride 0.9% 500 ML IVPB SCH (17:29)
[2019-07-15] MEDS: Cyclobenzaprine 10 MG TAB PO PRN (20:13)
[2019-07-15] MEDS: Atorvastatin Calcium 20 MG TAB PO SCH (20:13)
[2019-07-15] MEDS: Melatonin 3 MG TAB PO SCH (20:14)
[2019-07-16 03:58] LABS: #Basophils 0.1 thou/uL (0.0-0.2); #Eosinphils 0.8 thou/uL (0.0-0.7); #Lymphocytes 1.7 thou/uL (1.20-3.40); #Monocytes 0.8 thou/uL (0.11-0.59); %Basophils 0.4 % (0.0-1.0); %Eosinophils 6.7 % (0.0-10.0); %Lymphocytes 15.1 % (21.0-51.0); %Monocytes 7.3 % (0.0-10.0); %Neutrophils 70.4 % (42.0-75.0); Mean Corpuscular HGB CONC 32.4 g/dL (32.0-36.0); Mean Corpuscular Volume 86.5 fL (78.0-98.0); Mean Platelet Volume 7.1 fL (7.4-10.4); Platelet Count 302 thou/uL (130-400); RBC Distribution Width 13.9 % (11.5-14.5); White Blood Cell (WBC) Count 11.3 thou/uL (4.8-10.8)
[2019-07-16 04:22] LABS: ALT (SGPT) 23 U/L (8-55); AST (SGOT) 26 U/L (5-34); Alkaline Phosphatase 181 U/L (40-110); Anion Gap 10 mmol/L (10-20); BUN (Urea Nitrogen) 16 mg/dL (8.4-25.7); Bilirubin, Total 0.3 mg/dL (0.2-1.2); Calc. Creatinine Clearance 76 mL/min (70-130); Carbon Dioxide 23 mmol/L (23-31); Chloride 105 mmol/L (98-107); Estimated GFR-MDRD 65; Globulin 3.2 g/dL (2.4-3.5); Glucose 99 mg/dL (83-110); Potassium 3.3 mmol/L (3.5-5.1); Protein, Total 6.2 g/dL (5.8-8.1); Sodium 135 mmol/L (136-145)
--- NOTE | 2019-07-16 06:26 | PDOC.FM ---
- Subjective Subjective: Pt is unchanged today. He had a colonoscopy yesterday and results are pending. Pt is not sure of results. He does have a mild cough, productive starting yesterday. Most recent CXR was ok. He was started on vanc yesterday for staph in urine. - Objective Vital Signs & Weight: Vital Signs (12 hours) Temp Pulse Resp BP Pulse Ox 07/15/19 20:00 99.5 F 93 16 156/74 H 97 Weight Admit Weight 90.855 kg Weight 90.855 kg I&O: 07/14/19 07/15/19 07/16/19 06:59 06:59 06:59 Intake Total 680 4800 Output Total 1650 2200 750 Balance -970 2600 -750 Result Diagrams: 07/16/19 03:41 07/16/19 03:41 Phys Exam - Physical Examination Constitutional: NAD HEENT: PERRLA, moist MMs Neck: no nodes, no JVD Respiratory: no wheezing mild rhonchi Cardiovascular: RRR, no significant murmur Gastrointestinal: soft, positive bowel sounds Musculoskeletal: no edema, pulses present Neurological: non-focal, normal sensation Lymphatic: no nodes Psychiatric: A&O x 3 Skin: no rash, normal turgor Dx/Plan (1) Renal mass Code(s): N28.89 - OTHER SPECIFIED DISORDERS OF KIDNEY AND URETER Status: Acute (2) Hypertension Code(s): I10 - ESSENTIAL (PRIMARY) HYPERTENSION Status: Acute Qualifiers: Hypertension type: essential hypertension Qualified Code(s): I10 - Essential (primary) hypertension (3) Acute blood loss anemia Code(s): D62 - ACUTE POSTHEMORRHAGIC ANEMIA Status: Acute (4) Hematuria Code(s): R31.9 - HEMATURIA, UNSPECIFIED Status: Acute (5) Hematochezia Code(s): K92.1 - MELENA Status: Acute (6) Hypercalcemia of malignancy Code(s): E83.52 - HYPERCALCEMIA Status: Acute - Plan Plan: Patient is a 74 yo male who presents with abdominal pain, hematuria, and hematochezia is found to have renal mass highly suspicious for malignancy: # Renal Mass, right > left # 18 mm Liver Lesion -highly suspicious for invasive renal cell carcinoma -CT abd/pelvis: renal masses bilaterally with thrombus extension in renal vein -Dr. Brower consulted, appreciate recs -Dr. Peng consulted, appreciate recs -Bone scan negative for osteoblastic lesion, CT Head/Chest negative for mets -Pending Renal Bx -Add tramadol for pain, melatonin and benadryl to help with sleep -smith in place # Urinary Tract Infection -Vanc started on 07/15/19; pending sensitivities # Hx of Neck Procedures -Flexeril for neck stiffness #Hematochezia -SAADIA revealed no internal/external hemorrhoids, GI consult; appreciate recs - colonoscopy today # Normocytic Anemia likely 2/2 malignancy -monitor H/H in setting of hematuria, hematochezia -iron deficiency iron and anemia of chronic disease based on labs #Constipation -continue with senna # Hypercalcemia -WNL -Zoledronic acid given 07/11 # YEIMI vs CKD -repeat labs in am - improved # Hypertension -held lisinopril with YEIMI -held lasix, potassium as he has noted filled prescription -start amlodipine # GERD -continue home meds # Anxiety -continue home meds # HLD - continue home meds Diet: NPO then HH diet VTE: SCDs, hold anticoagulation Code status: Full PCP: none Dispo: Stable, admit to inpatient on oncology unit. Consider d/c depending on colonoscopy results. Anticipate LOS >48 hrs. Addendum - Attending - Attending Attestation Date/Time: 07/16/19 1435 I personally evaluated the patient and discussed the management with Dr. Franco. I agree with the History, Examination, Assessment and Plan documented above with any addition or exceptions noted below. Patient just returned from colonoscopy, awaiting report. Patient awaiting biopsy report regarding suspicion for RCC. Uro and Onc on board. It appears that inpatient workup is almost complete and will work to help determine his outpatient course and hopeful discharge in the next day or so.
[2019-07-16] MEDS: Fish Oil 1,000 MG CAP PO SCH (08:47)
[2019-07-16] MEDS: Multivit, Therapeutic 1 TAB PO SCH (08:47)
[2019-07-16] MEDS ORDERED: Enoxaparin Sodium 40 MG/0.4 ML SYRINGE SC SCH (09:30)
[2019-07-16] MEDS ORDERED: Ondansetron HCl/PF 4 MG/2 ML Vial IVP PRN (10:02)
[2019-07-16] MEDS ORDERED: Promethazine HCl 25 MG/ML VIAL IM PRN (10:02)
[2019-07-16] MEDS ORDERED: Promethazine HCl 25 MG/ML VIAL SLOW IVP PRN (10:02)
[2019-07-16] MEDS ORDERED: Potassium Chloride 20 MEQ in Premix Bag 1 BAG IVPB SCH (10:15)
[2019-07-16] MEDS: Potassium Chloride 20 MEQ in Premix Bag 1 BAG IVPB SCH ×2 (10:54→11:54)
--- NOTE | 2019-07-16 10:59 | PDOC.PALFU ---
Palliative Care Follow-up Note Palliative Care will continue to follow, attempted to discuss Advance directives and goal of care. Patient at procedure, will follow up.
--- NOTE | 2019-07-16 11:00 | PDOC.FMACP ---
Advance Care Planning - Problem (1) Palliative care encounter Status: Acute Code(s): Z51.5 - ENCOUNTER FOR PALLIATIVE CARE (2) Hypercalcemia of malignancy Status: Acute Code(s): E83.52 - HYPERCALCEMIA (3) Hypertension Status: Acute Code(s): I10 - ESSENTIAL (PRIMARY) HYPERTENSION Qualifiers: Hypertension type: essential hypertension Qualified Code(s): I10 - Essential (primary) hypertension (4) Renal mass Status: Acute Code(s): N28.89 - OTHER SPECIFIED DISORDERS OF KIDNEY AND URETER - Note Participants: patient, palliative care Summary: Palliative Care introduced Advanced Care Planning.. The diagnosis, prognosis and goals of care were discussed. Awaiting pathology from Biopsy. Mr Moscoso was allowed an opportunity to decline, he accepted information, however wishes to complete at a later time. Appropriate forms and documentation to accomplish the goals of care were discussed, hopeful transition to rehab. All questions were answered. The Palliative Care Team will continue to assist in completion of MPOA and Directive to physician as patient requests. Time Spent (mins): 30
[2019-07-16] MEDS ORDERED: Potassium Chloride 20 MEQ, Admixture Fee 1 EACH in Sodium Chloride 0.9% 250 ML 250 ML IV SCH (11:15)
--- NOTE | 2019-07-16 12:24 | OP ---
DATE OF PROCEDURE: 07/16/2019 PROCEDURE PERFORMED: Colonoscopy, diagnostic. INDICATIONS: 1. Hematochezia. 2. Anemia. MEDICATIONS: See Anesthesia record. FINDINGS: After discussion of the risks, benefits, and alternatives of the procedure, informed consent was obtained and witnessed. Pre-endoscopic cardiopulmonary examination was satisfactory. Time-out was performed before sedation was achieved. Sedation was achieved with Anesthesia assistance in the endoscopy unit. A Pentax adult colonoscope was prepared. Digital rectal exam was performed, which was unremarkable. The colonoscope was inserted into the anus and passed forward to the cecum in the usual fashion. The cecal base was identified by the appendiceal orifice as well as the ileocecal valve. The terminal ileum was intubated and the ileal mucosa appeared normal. The colonoscope was slowly withdrawn in a gradual and circumferential manner with careful examination of the entire colonic mucosa. The quality of the prep was adequate. There was no old blood or active bleeding or any bleeding lesions noted. There were no polyps visualized. There was diverticulosis in the sigmoid colon. Retroflexion in the rectum demonstrates internal hemorrhoids. The colonoscope was completely withdrawn and the patient allowed to recover. The patient tolerated the procedure well. There were no immediate postprocedure complications. IMPRESSION: 1. Sigmoid diverticulosis. 2. Internal hemorrhoids. 3. No old blood or active bleeding or bleeding lesions seen. 4. Otherwise, normal colonoscopy to the terminal ileum. RECOMMENDATIONS: 1. Advance diet. 2. GI will sign off. Please call back if needed. Job ID: [id number]
--- NOTE | 2019-07-16 12:29 | OP ---
DATE OF PROCEDURE: 07/16/2019 PROCEDURE PERFORMED: Colonoscopy, diagnostic. INDICATIONS: 1. Hematochezia. 2. Anemia. MEDICATIONS: See Anesthesia record. FINDINGS: After discussion of the risks, benefits, and alternatives of the procedure, informed consent was obtained and witnessed. Pre-endoscopic cardiopulmonary examination was satisfactory. Time-out was performed before sedation was achieved. Sedation was achieved with Anesthesia assistance in the Endoscopy Unit. A Pentax adult colonoscope was prepared. Digital rectal exam was performed, which was unremarkable. The colonoscope was inserted into the anus and passed forward to the cecum in the usual fashion. The cecal base was identified by the appendiceal orifice as well as the ileocecal valve. The terminal ileum was intubated and the ileal mucosa appeared normal. The colonoscope was slowly withdrawn in a gradual circumferential manner with careful examination of the entire colonic mucosa. The quality of the prep was adequate. There was no evidence of any old blood or active bleeding or bleeding lesions throughout the colon. There were no polyps visualized. There was diverticulosis in the sigmoid colon. Retroflexion in the rectum demonstrates internal hemorrhoids. The colonoscope was completely withdrawn and the patient allowed to recover. The patient tolerated the procedure well. There were no immediate postprocedure complications. IMPRESSION: 1. Sigmoid diverticulosis. 2. Internal hemorrhoids. 3. No old blood, active bleeding, or bleeding lesions visualized. 4. Otherwise, normal colonoscopy to the terminal ileum. RECOMMENDATIONS: 1. Advance diet. 2. GI will sign off. Please call back if needed. Job ID: [id number]
[2019-07-16] MEDS ORDERED: PROPOFOL 200 MG/20 ML VIAL ONE (12:54)
[2019-07-16] MEDS ORDERED: Lidocaine 1% PF 5 ML VIAL ONE (12:54)
--- NOTE | 2019-07-16 13:33 | RAD ---
FRONTAL RADIOGRAPH CHEST: Date: 07-16-2019 Comparison: 07-14-2019 History: Productive cough. FINDINGS: There is atherosclerotic calcification in the aortic arch. Mild stable interstitial density. No pneum othorax, pleural fluid, focal consolidation or alveolar edema. IMPRESSION: No acute findings. POS: [facility]
--- NOTE | 2019-07-16 14:06 | PDOC.MOPN ---
Interval History: no pain, hematuria resolved, c/o being weak - Vital Signs Vital Signs: Vital Signs (12 hours) Temp Pulse Resp BP Pulse Ox 07/16/19 11:45 98.3 F 88 18 142/76 H 95 07/16/19 11:30 88 18 137/78 95 07/16/19 11:15 98.0 F 86 18 133/72 94 L 07/16/19 11:00 82 18 132/71 94 L 07/16/19 10:45 98.5 F 87 18 130/65 95 07/16/19 08:00 95 07/16/19 07:41 98.3 F 91 20 142/67 H 95 Weight Admit Weight 200 lb 4.8 oz Weight 200 lb 4.8 oz - Physical Exam General: Alert, Oriented x3, No acute distress HEENT: Atraumatic, PERRLA, EOMI, Mucous membr. moist/pink Lungs: Clear to auscultation, Normal air movement Cardiovascular: Regular rate, Normal S1, Normal S2, No murmurs, Gallops, Rubs Abdomen: Normal bowel sounds Neurological: Normal speech - Labs Result Diagrams: 07/16/19 03:41 07/16/19 03:41 Lab results: Laboratory Results - last 24 hr 07/16/19 03:41: Procalcitonin 0.13 07/16/19 03:41: Sodium 135 L, Potassium 3.3 L, Chloride 105, Carbon Dioxide 23, Anion Gap 10, BUN 16, Creatinine 1.10, Estimated GFR (MDRD) 65, Glucose 99, Calcium 9.0, Total Bilirubin 0.3, AST 26, ALT 23, Alkaline Phosphatase 181 H, Serum Total Protein 6.2, Albumin 3.0 L, Globulin 3.2, Albumin/Globulin Ratio 0.9 L 07/16/19 03:41: WBC 11.3 H, RBC 3.20 L, Hgb 9.0 L, Hct 27.7 L, MCV 86.5, MCH 28.0, MCHC 32.4, RDW 13.9, Plt Count 302, MPV 7.1 L, Neutrophils % 70.4, Lymphocytes % 15.1 L, Monocytes % 7.3, Eosinophils % 6.7, Basophils % 0.4, Neutrophils # 8.0 H, Lymphocytes # 1.7, Monocytes # 0.8 H, Eosinophils # 0.8 H, Basophils # 0.1 07/12/19 08:48: Crossmatch See Detail Status: lab reviewed by me A/P - Problem (1) Acute blood loss anemia Current Visit: Yes Code(s): D62 - ACUTE POSTHEMORRHAGIC ANEMIA Status: Acute (2) Hematuria Current Visit: Yes Code(s): R31.9 - HEMATURIA, UNSPECIFIED Status: Acute (3) Hypercalcemia of malignancy Current Visit: Yes Code(s): E83.52 - HYPERCALCEMIA Status: Acute (4) Renal mass Current Visit: Yes Code(s): N28.89 - OTHER SPECIFIED DISORDERS OF KIDNEY AND URETER Status: Acute - Plan Plan: 1. await path results 2. continue PT 3. Recommend rehab to improve strength 4. F/U outpatient
[2019-07-16] MEDS: Vancomycin HCl 1.75 GM in Sodium Chloride 0.9% 500 ML IVPB SCH (17:11)
[2019-07-16] MEDS ORDERED: Famotidine 20 MG TAB PO SCH (18:45)
[2019-07-16] MEDS: Cyclobenzaprine 10 MG TAB PO PRN (20:27)
[2019-07-16] MEDS: Atorvastatin Calcium 20 MG TAB PO SCH (20:28)
[2019-07-16] MEDS: Sulfameth/Trimethoprim DS 800-160mg TAB PO SCH (20:28)
[2019-07-16] MEDS: Melatonin 3 MG TAB PO SCH (23:29)
[2019-07-16] MEDS ORDERED: guaiFENesin ER 600 MG TAB PO SCH (23:30)
[2019-07-17 03:50] LABS: #Eosinphils 0.7 thou/uL (0.0-0.7); #Lymphocytes 1.6 thou/uL (1.20-3.40); #Monocytes 1.1 thou/uL (0.11-0.59); #Neutrophils 7.8 thou/uL (1.40-6.50); %Basophils 0.3 % (0.0-1.0); %Eosinophils 6.6 % (0.0-10.0); %Lymphocytes 14.1 % (21.0-51.0); %Monocytes 9.8 % (0.0-10.0); %Neutrophils 69.2 % (42.0-75.0); Hemoglobin 8.8 g/dL (14.0-18.0); Mean Corpuscular HGB CONC 32.4 g/dL (32.0-36.0); Mean Corpuscular Volume 86.4 fL (78.0-98.0); Platelet Count 308 thou/uL (130-400); RBC Distribution Width 13.8 % (11.5-14.5); Red Blood Cell (RBC) Count 3.13 mill/uL (4.70-6.10); White Blood Cell (WBC) Count 11.2 thou/uL (4.8-10.8)
[2019-07-17 04:09] LABS: ALT (SGPT) 25 U/L (8-55); AST (SGOT) 29 U/L (5-34); Albumin 2.9 g/dL (3.4-4.8); Alkaline Phosphatase 200 U/L (40-110); Anion Gap 9 mmol/L (10-20); BUN (Urea Nitrogen) 14 mg/dL (8.4-25.7); Bilirubin, Total 0.2 mg/dL (0.2-1.2); Calc. Creatinine Clearance 82 mL/min (70-130); Calcium 8.8 mg/dL (7.8-10.44); Carbon Dioxide 22 mmol/L (23-31); Chloride 108 mmol/L (98-107); Estimated GFR-MDRD 72; Globulin 3.2 g/dL (2.4-3.5); Glucose 118 mg/dL (83-110); Potassium 3.3 mmol/L (3.5-5.1); Protein, Total 6.1 g/dL (5.8-8.1); Sodium 136 mmol/L (136-145)
--- NOTE | 2019-07-17 07:10 | PDOC.FM ---
- Subjective Subjective: Pt unchanged today. Discussed care with nurse and he had no overnight events. He slept well with addition of mucinex 2/2/ cough. CXR did not reveal pneumonia. - Objective Vital Signs & Weight: Vital Signs (12 hours) Temp Pulse Resp BP Pulse Ox 07/16/19 19:50 97 07/16/19 19:43 98.5 F 93 16 147/70 H 97 Weight Admit Weight 90.855 kg Weight 90.855 kg I&O: 07/16/19 07/17/19 07/18/19 06:59 06:59 06:59 Intake Total 480 1590 Output Total 2100 2725 Balance -1620 -8905 Result Diagrams: 07/17/19 03:28 07/17/19 03:28 Phys Exam - Physical Examination Constitutional: NAD HEENT: moist MMs Respiratory: no wheezing, no rhonchi, clear to auscultation bilateral Cardiovascular: RRR, no significant murmur Gastrointestinal: soft, positive bowel sounds Psychiatric: normal affect, A&O x 3 Skin: no rash, cap refill <2 seconds Dx/Plan (1) Renal mass Code(s): N28.89 - OTHER SPECIFIED DISORDERS OF KIDNEY AND URETER Status: Acute (2) Hypertension Code(s): I10 - ESSENTIAL (PRIMARY) HYPERTENSION Status: Acute Qualifiers: Hypertension type: essential hypertension Qualified Code(s): I10 - Essential (primary) hypertension (3) Acute blood loss anemia Code(s): D62 - ACUTE POSTHEMORRHAGIC ANEMIA Status: Acute (4) Hematuria Code(s): R31.9 - HEMATURIA, UNSPECIFIED Status: Acute (5) Hematochezia Code(s): K92.1 - MELENA Status: Acute (6) Hypercalcemia of malignancy Code(s): E83.52 - HYPERCALCEMIA Status: Acute - Plan Plan: Patient is a 74 yo male who presents with abdominal pain, hematuria, and hematochezia is found to have renal mass highly suspicious for malignancy: # Renal Mass, right > left # 18 mm Liver Lesion -highly suspicious for invasive renal cell carcinoma -CT abd/pelvis: renal masses bilaterally with thrombus extension in renal vein -Dr. Brower consulted, appreciate recs - follow up outpt for voiding trial and cystoscopy -Dr. Peng consulted, appreciate recs - follow up outpt for review of biopsy -Bone scan negative for osteoblastic lesion, CT Head/Chest negative for mets -Pending Renal Bx -Add tramadol for pain, melatonin # Deconditiong -pending transfer to rehab # Urinary Tract Infection -Vanc started on 07/15/19 and transitioned to bactrim on 07/15; UCx currently < 10, 000 CFU normal marino # Hx of Neck Procedures -Flexeril for neck stiffness # Normocytic Anemia likely 2/2 renal malignancy # Hematochezia - colonoscopy WNL - Appreciate GI rec's - signed off #Constipation -continue with senna # Hypercalcemia -WNL -Zoledronic acid given 07/11 # YEIMI vs CKD -repeat labs in am - improved # Hypertension -held lisinopril with YEIMI -held lasix, potassium as he has noted filled prescription -start amlodipine # GERD -continue home meds # Anxiety -continue home meds # HLD - continue home meds Diet: NPO then HH diet VTE: SCDs, hold anticoagulation Code status: Full PCP: none Dispo: Stable, admit to inpatient on oncology unit. D/C pending placement Anticipate LOS >48 hrs. s Addendum - Attending - Attending Attestation Date/Time: 07/17/19 1150 I personally evaluated the patient and discussed the management with Dr. Franco. I agree with the History, Examination, Assessment and Plan documented above with any addition or exceptions noted below. Patient stable. He is awaiting pathology, but is otherwise stable for discharge with continued outpatient follow up with Urology and Oncology. We are working to get him to Rehab and awaiting approval for that.
[2019-07-17] MEDS ORDERED: Potassium Chloride 20 MEQ TAB PO SCH (07:15)
[2019-07-17] MEDS: Sulfameth/Trimethoprim DS 800-160mg TAB PO SCH ×2 (08:10→20:10)
[2019-07-17] MEDS: Multivit, Therapeutic 1 TAB PO SCH (08:10)
[2019-07-17] MEDS: guaiFENesin ER 600 MG TAB PO SCH ×2 (08:10→20:10)
[2019-07-17] MEDS: Fish Oil 1,000 MG CAP PO SCH (08:10)
[2019-07-17] MEDS: Albuterol Sulfate 1.25 MG/3 ML NEB NEB PRN ×2 (08:37→19:57)
[2019-07-17] MEDS ORDERED: Enoxaparin Sodium 40 MG/0.4 ML SYRINGE SC SCH (09:00)
[2019-07-17] MEDS: Atorvastatin Calcium 20 MG TAB PO SCH (20:10)
[2019-07-17] MEDS: Melatonin 3 MG TAB PO SCH (20:10)
[2019-07-17] MEDS: Cyclobenzaprine 10 MG TAB PO PRN (21:22)
[2019-07-18 05:28] LABS: #Basophils 0.1 thou/uL (0.0-0.2); #Eosinphils 0.6 thou/uL (0.0-0.7); #Lymphocytes 1.6 thou/uL (1.20-3.40); #Monocytes 1.1 thou/uL (0.11-0.59); #Neutrophils 7.1 thou/uL (1.40-6.50); %Basophils 0.5 % (0.0-1.0); %Eosinophils 5.7 % (0.0-10.0); %Lymphocytes 15.5 % (21.0-51.0); %Monocytes 10.3 % (0.0-10.0); Hemoglobin 8.6 g/dL (14.0-18.0); Mean Corpuscular Hemoglobin 27.6 pg (27.0-31.0); Mean Corpuscular Volume 86.1 fL (78.0-98.0); Mean Platelet Volume 7.5 fL (7.4-10.4); Platelet Count 332 thou/uL (130-400); RBC Distribution Width 13.9 % (11.5-14.5); Red Blood Cell (RBC) Count 3.11 mill/uL (4.70-6.10); White Blood Cell (WBC) Count 10.5 thou/uL (4.8-10.8)
[2019-07-18 05:54] LABS: ALT (SGPT) 26 U/L (8-55); AST (SGOT) 26 U/L (5-34); Albumin 3.1 g/dL (3.4-4.8); Alkaline Phosphatase 187 U/L (40-110); Anion Gap 11 mmol/L (10-20); BUN (Urea Nitrogen) 14 mg/dL (8.4-25.7); Bilirubin, Total 0.3 mg/dL (0.2-1.2); Calc. Creatinine Clearance 70 mL/min (70-130); Calcium 9.2 mg/dL (7.8-10.44); Carbon Dioxide 22 mmol/L (23-31); Chloride 109 mmol/L (98-107); Estimated GFR-MDRD 60; Globulin 3.3 g/dL (2.4-3.5); Glucose 100 mg/dL (83-110); Potassium 3.5 mmol/L (3.5-5.1); Protein, Total 6.4 g/dL (5.8-8.1); Sodium 138 mmol/L (136-145)
--- NOTE | 2019-07-18 06:16 | PDOC.FM ---
- Subjective Subjective: Pt is doing well. He is ready to be transferred to rehab. He has no complaints. Cough improving. - Objective Vital Signs & Weight: Vital Signs (12 hours) Temp Pulse Resp BP Pulse Ox 07/17/19 20:00 99.5 F 98 16 149/69 H 96 07/17/19 19:57 95 16 96 Weight Admit Weight 90.855 kg Weight 90.855 kg I&O: 07/16/19 07/17/19 07/18/19 06:59 06:59 06:59 Intake Total 480 1590 750 Output Total 2100 2725 950 Balance -1620 -1135 -200 Result Diagrams: 07/18/19 04:45 07/18/19 04:45 Phys Exam - Physical Examination Constitutional: NAD Neck: no nodes, no JVD Respiratory: no wheezing, no rales, clear to auscultation bilateral Cardiovascular: RRR, no significant murmur Gastrointestinal: soft, positive bowel sounds Musculoskeletal: no edema, pulses present Psychiatric: normal affect, A&O x 3 Dx/Plan (1) Renal mass Code(s): N28.89 - OTHER SPECIFIED DISORDERS OF KIDNEY AND URETER Status: Acute (2) Hypertension Code(s): I10 - ESSENTIAL (PRIMARY) HYPERTENSION Status: Acute Qualifiers: Hypertension type: essential hypertension Qualified Code(s): I10 - Essential (primary) hypertension (3) Acute blood loss anemia Code(s): D62 - ACUTE POSTHEMORRHAGIC ANEMIA Status: Acute (4) Hematuria Code(s): R31.9 - HEMATURIA, UNSPECIFIED Status: Acute (5) Hematochezia Code(s): K92.1 - MELENA Status: Acute (6) Hypercalcemia of malignancy Code(s): E83.52 - HYPERCALCEMIA Status: Acute - Plan Plan: Patient is a 74 yo male who presents with abdominal pain, hematuria, and hematochezia is found to have renal mass highly suspicious for malignancy: # Renal Mass, right > left # 18 mm Liver Lesion -highly suspicious for invasive renal cell carcinoma -CT abd/pelvis: renal masses bilaterally with thrombus extension in renal vein -Dr. Brower consulted, appreciate recs - follow up outpt for voiding trial and cystoscopy -Dr. Peng consulted, appreciate recs - follow up outpt for review of biopsy -Bone scan negative for osteoblastic lesion, CT Head/Chest negative for mets -Pending Renal Bx -Add tramadol for pain, melatonin # Deconditiong -pending transfer to rehab # Urinary Tract Infection -Vanc started on 07/15/19 and transitioned to bactrim on 07/15; UCx now reveals staph again - will restart bactrim. # Hx of Neck Procedures -Flexeril for neck stiffness # Normocytic Anemia likely 2/2 renal malignancy # Hematochezia - colonoscopy WNL - Appreciate GI rec's - signed off #Constipation -continue with senna # Hypercalcemia -WNL -Zoledronic acid given 07/11 # YEIMI vs CKD -repeat labs in am - improved # Hypertension -held lisinopril with YEIMI -held lasix, potassium as he has noted filled prescription -start amlodipine # GERD -continue home meds # Anxiety -continue home meds # HLD - continue home meds Diet: HH VTE: SCDs, hold anticoagulation Code status: Full PCP: none Dispo: Stable, admit to inpatient on oncology unit. D/C pending placement Anticipate LOS >48 hrs. s Addendum - Attending - Attending Attestation Date/Time: 07/18/19 0544 I personally evaluated the patient and discussed the management with Dr. Franco. I agree with the History, Examination, Assessment and Plan documented above with any addition or exceptions noted below. Patient overall stable. Awaiting path report but patient will follow up with that outpatient. Awaiting rehab acceptance and should be stable for discharge after that time. We have received 3 different reports on his urine culture results, from Staph to no growth and back to Staph that is complicating our ability to make decision regarding the need for antibiotics for possible UTI.
[2019-07-18 07:43] VITALS: BP 120/63; TEMP 99.1
[2019-07-18] MEDS: guaiFENesin ER 600 MG TAB PO SCH (09:50)
[2019-07-18] MEDS: Multivit, Therapeutic 1 TAB PO SCH (09:50)
[2019-07-18] MEDS: Fish Oil 1,000 MG CAP PO SCH (09:50)
[2019-07-18] MEDS: Acetaminophen 325 MG TAB PO PRN (09:51)
[2019-07-18] MEDS: Ondansetron ODT 4 MG TAB PO PRN (09:51)
[2019-07-18] MEDS: Senokot S 8.6-50 MG TAB PO PRN (09:51)
[2019-07-18] MEDS ORDERED: Sulfameth/Trimethoprim DS 800-160mg TAB PO SCH ×2 (11:45→21:00)
== END 2019-07-18 14:18 | DRG 687 ==
LOC: ERS 06:27 → ONC 09:18
PROVIDERS: ADMIT Family Medicine; ATTEND Family Medicine
PROC: 0TB33ZX Excision of Right Kidney Pelvis, Percutaneous Approach, Diagnostic (ICD-10-PCS; principal; 2019-07-12)
PROC: 0T9B70Z Drainage of Bladder with Drainage Device, Via Natural or Artificial Opening (ICD-10-PCS; 2019-07-12)
PROC: 0DJD8ZZ Inspection of Lower Intestinal Tract, Via Natural or Artificial Opening Endoscopic (ICD-10-PCS; 2019-07-16)
DX: C64.1 Malignant neoplasm of right kidney, except renal pelvis (principal); D62 Acute posthemorrhagic anemia; N17.9 Acute kidney failure, unspecified; K62.5 Hemorrhage of anus and rectum; N39.0 Urinary tract infection, site not specified; C64.2 Malignant neoplasm of left kidney, except renal pelvis; Z66 Do not resuscitate; K21.9 Gastro-esophageal reflux disease without esophagitis; E78.5 Hyperlipidemia, unspecified; R31.9 Hematuria, unspecified; E83.52 Hypercalcemia; K57.30 Diverticulosis of large intestine without perforation or abscess without bleeding; K64.8 Other hemorrhoids; R33.9 Retention of urine, unspecified; I12.9 Hypertensive chronic kidney disease with stage 1 through stage 4 chronic kidney disease, or unspecified chronic kidney disease; R53.81 Other malaise; N18.9 Chronic kidney disease, unspecified; F41.8 Other specified anxiety disorders; Z98.42 Cataract extraction status, left eye; Z98.1 Arthrodesis status; Z98.41 Cataract extraction status, right eye; Z90.49 Acquired absence of other specified parts of digestive tract; Z87.891 Personal history of nicotine dependence; Z85.46 Personal history of malignant neoplasm of prostate
CPT/HCPCS: 36415; 50200; 70470; 71045; 71260; 74177; 77002; 78306; 80053; 81003; 81015; 82306; 82570; 82607; 82728; 82746; 83540; 83550; 83605; 83690; 83970; 84145; 84540; 85025; 85610; 85730; 86850; 86900; 86901; 87040; 87077; 87086; 88305; 88333; 88334; 88341; 88342; 93005; 94640; A9503; J1650; J2001; J2405; J2704; J3370; J3480; J3489; J3490; J7030; J7050; Q0162; Q9967

== ENCOUNTER 2019-08-19 09:45 | Inpatient (IN) | payer MEDICARE, OTHER ==
[2019-08-19 10:36] LABS: #Eosinphils 0.3 thou/uL (0.0-0.7); #Lymphocytes 1.1 thou/uL (1.20-3.40); #Monocytes 1.1 thou/uL (0.11-0.59); #Neutrophils 10.7 thou/uL (1.40-6.50); %Basophils 0.2 % (0.0-1.0); %Eosinophils 2.6 % (0.0-10.0); %Lymphocytes 8.2 % (21.0-51.0); %Monocytes 8.1 % (0.0-10.0); %Neutrophils 80.9 % (42.0-75.0); Hemoglobin 9.4 g/dL (14.0-18.0); Mean Corpuscular HGB CONC 31.4 g/dL (32.0-36.0); Mean Corpuscular Hemoglobin 27.9 pg (27.0-31.0); Mean Platelet Volume 6.7 fL (7.4-10.4); Platelet Count 385 thou/uL (130-400); RBC Distribution Width 16.6 % (11.5-14.5); Red Blood Cell (RBC) Count 3.36 mill/uL (4.70-6.10); White Blood Cell (WBC) Count 13.3 thou/uL (4.8-10.8)
[2019-08-19 10:36] LABS: Bilirubin Small (Negative); Blood, Urine Large (Negative); Glucose, Urine (Dipstick) Negative (Negative); Ketone, Urine Negative (Negative); Leukocyte Large (Negative); Nitrite Negative (Negative); Protein, Urine (Dipstick) > or equal to 300 mg/dL (Neg-Trace); Urobilinogen 0.2 mg/dL (Less than 2)
[2019-08-19 10:40] LABS: Clarity Turbid (Clear)
[2019-08-19 10:47] LABS: RBC/HPF Greater than 50 HPF (0-3)
[2019-08-19 10:49] LABS: Bacteria/HPF 1+ HPF (None Seen); Squamous Epithelial None Seen HPF (0-3)
[2019-08-19] MEDS ORDERED: Morphine 4 MG/ML VIAL ONE ×2 (10:49→15:26)
[2019-08-19 10:57] LABS: ALT (SGPT) 20 U/L (8-55); AST (SGOT) 26 U/L (5-34); Albumin 3.5 g/dL (3.4-4.8); Alkaline Phosphatase 154 U/L (40-110); Anion Gap 13 mmol/L (10-20); BUN (Urea Nitrogen) 23 mg/dL (8.4-25.7); Bilirubin, Total 0.3 mg/dL (0.2-1.2); Calc. Creatinine Clearance 0 mL/min (70-130); Calcium 9.3 mg/dL (7.8-10.44); Carbon Dioxide 22 mmol/L (23-31); Chloride 102 mmol/L (98-107); Estimated GFR-MDRD 39; Globulin 4.3 g/dL (2.4-3.5); Glucose 109 mg/dL (83-110); Lipase 20 U/L (8-78); Potassium 5.2 mmol/L (3.5-5.1); Protein, Total 7.8 g/dL (5.8-8.1); Sodium 132 mmol/L (136-145)
--- NOTE | 2019-08-19 11:36 | CT ---
CT ABDOMEN AND PELVIS WITH IV CONTRAST: HISTORY: Abdominal pain. Renal cell carcinoma. COMPARISON: 07/12/2019 FINDINGS: No significant acute process in the lungs. Old granulomatous disease. Stable circumscribed low attenu ation focus in the left lobe of the liver. Again noted is a huge advanced right renal cell carcinoma with progressive thrombus extending in the inferior vena cava, up to a level above the hemidiaphragm, almost to the level of the right atrium. There is some scattered retroperitoneal adenopathy. Multipl e right renal cysts. No renal calculi or acute obstruction. Stable left renal cell carcinoma. Fole y catheter in place. Surgical clips in both lateral pelvis regions. Colonic diverticulosis without ac andreafski diverticulitis. No evidence for abscess or significant abnormal fluid collection within the abdom en or pelvis. IMPRESSION: Overall stable bilateral renal cell carcinomas. There has been definite progression of thrombus withi n the inferior vena cava, now extending above the level of the hemidiaphragm to almost the level of t he right atrium. Numerous other findings as above. No obstructing renal calculus. No evidence for ac andreafski appendicitis. Holbrook catheter within the bladder, somewhat obscuring the previously noted right-si ded bladder mass. POS: [facility]
[2019-08-19 12:20] LABS: INR-International Normal Ratio 1.2; PTT 28.4 sec (22.9-36.1); Prothrombin Time 15.1 sec (12.0-14.7)
[2019-08-19] MEDS ORDERED: Iopamidol-370 76% 500 ML 1 ML ONE (15:07)
[2019-08-19] MEDS ORDERED: Ondansetron PF 4 MG/2 ML Vial IVP PRN (16:52)
--- NOTE | 2019-08-19 17:29 | PDOC.FPRHP ---
- History of Present Illness Chief Complaint: Abdominal pain History of Present Illness: 74 year old male with a history of renal cell carcinoma bilaterally, HLD, HTN, GERD and anxiety presents to the ED with hematuria, hematochezia and abdominal pain. The patient has an indwelling smith catheter. He reports seeing blood in the catheter since yesterday, including episodes of clots that have since stopped. He also notes a distinct odor from the urine. No dysuria. The patient reports an episode of hematochezia with his last BM yesterday but was unable to determine if blood within the stool or not due to the large amount of blood in the toilet. The abdominal pain is chronic but worsened 1 week ago. It is diffuse with more severe pain located in the lower quadrants and rated a 10/10. The patient says the pain radiates to the lower back which is also rated a 10/ 10. The patient states the pain worsens with constipation and movement. He takes Tramadol and Flexeril with minimal relief. He also complains of dizziness , lightheadedness upon standing, and chills that he associated with an anxiety episode last night. He has had poor PO intake for the past 2 days due to chronic nausea. He vomited x 4 in the last 24 hours. denies headache, congestion , chest pain, and SOB. The patient was diagnosed with RCC during his last admission from 07/12/19-. At that time, he complains of hematuria and hematochezia. GI, oncology and urology were following. A bone scan was done and showed no lesions. CT Head and CT Chest were done and showed no mets. Colonoscopy was completed and showed no malignancy. 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 Due to current bleeding , patient was not placed on anticoagulation. ED Course: Vital signs were stable. Morphine and fluids were administered. Oncology was consulted and recommended admitting to oncology service. - Allergies/Adverse Reactions Allergies Allergy/AdvReac Type Severity Reaction Status Date / Time No Known Allergies Allergy Verified 08/19/19 17:11 - Home Medications Medication Instructions Recorded Confirmed Type Esomeprazole Magnesium [NexIUM] 40 mg PO DAILY 12/04/12 08/19/19 History Simvastatin [Zocor] 40 mg PO HS 12/04/12 08/19/19 History Fexofenadine HCl [Swetha] 180 mg PO DAILY PRN 05/03/13 08/19/19 History Glucosam/Daniel-Col.Cplx/D3/C/Mn 1 cap PO DAILY 05/03/13 08/19/19 History [Gkzqmcwejma-Vsjwsjlkonv-R8 Cap] Multivitamin [Multivitamins] 1 cap PO DAILY 05/03/13 08/19/19 History [place]-3S/DHA/EPA/Fish Oil [Fish 1 cap PO DAILY 05/03/13 08/19/19 History Oil 1,200 mg Softgel] Ventolin HFA Inhaler 1 puff INH Q4HR PRN 05/03/13 08/19/19 History Cyclobenzaprine [Flexeril] 10 mg PO TIDPRN PRN tab 07/18/19 08/19/19 Rx Melatonin 3 mg PO HS tab 07/18/19 08/19/19 Rx Sennosides/Docusate Sodium 2 tab PO BIDPRN PRN tab 07/18/19 08/19/19 Rx [Senokot S] guaiFENesin ER [Mucinex] 600 mg PO Q12HR tab 07/18/19 08/19/19 Rx traMADol HCl [Ultram] 50 mg PO Q4H PRN tab 07/18/19 08/19/19 Rx - History PMHx: Renal cell carcinoma bilaterally, HLD, anxiety, GERD, HTN, chronic neck pain PSHx: Bilateral cataracts, hernia repair, neck surgery, open prostatectomy Social: Quit smoking 40 years ago, previously 2.5 ppd since teenage years. Denies alcohol or drug use. - Review of Systems General: reports: fever/chills (Chills related to anxiety last pm), weight/ appetite/sleep changes (Decrease PO intake x 2 days). denies: night sweats Eyes: denies: eye pain, vision changes ENT: denies: nasal congestion, rhinorrhea Respiratory: reports: cough (Chronic, occurs daily in the afternoon). denies: congestion, shortness of breath Cardiovascular: reports: edema (Chronic). denies: chest pain Gastrointestinal: reports: nausea, vomiting (x 4 last pm), abdominal pain, GI bleeding. denies: diarrhea, constipation Genitourinary: reports: other (Gross hematuria). denies: incontinence, dysuria , polyuria Skin: denies: rashes, jaundice Musculoskeletal: reports: pain (Lower back pain rated 10/10). denies: tenderness Neurological: reports: numbness (Chronic bilateral lower extremity), other ( Dizziness, lightheadedness). denies: syncope Psychological: reports: anxiety. denies: depression - Vital signs BP: [123/72] HR: [92] RR: [19] Tmax: [98.4] Pox: [96]% on [RA] Wt: [81.7kg] - Physical Exam Constitutional: NAD, awake, alert and oriented HEENT: normocephalic and atraumatic, no scleral icterus Neck: supple, trachea midline Chest: no-tender to palpation, no lesions Heart: RRR, normal S1/S2, pulses present -Heart: 2+ pitting edema bilaterally Lungs: CTAB, no respiratory distress Abdomen: soft, bowel sounds present, no masses/distention -Abdomen: Mild tenderness to palpation throughout, anticipatory guarding, no rebound tenderness Musculoskeletal: normal structure, ROM grossly normal Neurological: no focal deficit, CN II-XII intact Skin: no rash/lesions, good turgor Heme/Lymphatic: no unusual bruising or bleeding, no purpura Psychiatric: normal mood and affect, good judgment and insight Additional comment: Rectal exam: brown, no apparent blood. Urine output was pink. No clots noted. FMR H&P: Results - Labs Result Diagrams: 08/20/19 05:55 08/20/19 05:55 Lab results: WBC 13.3 thou/uL (4.8-10.8) H 08/19/19 10:19 Hgb 9.4 g/dL (14.0-18.0) L 08/19/19 10:19 Hct 29.9 % (42.0-52.0) L 08/19/19 10:19 MCV 89.0 fL (78.0-98.0) 08/19/19 10:19 Plt Count 385 thou/uL (130-400) 08/19/19 10:19 Neutrophils % 80.9 % (42.0-75.0) H 08/19/19 10:19 Sodium 132 mmol/L (136-145) L 08/19/19 10:19 Potassium 5.2 mmol/L (3.5-5.1) H 08/19/19 10:19 Chloride 102 mmol/L (98-107) 08/19/19 10:19 Carbon Dioxide 22 mmol/L (23-31) L 08/19/19 10:19 BUN 23 mg/dL (8.4-25.7) 08/19/19 10:19 Creatinine 1.74 mg/dL (0.7-1.3) H 08/19/19 10:19 Glucose 109 mg/dL (83-110) 08/19/19 10:19 Calcium 9.3 mg/dL (7.8-10.44) 08/19/19 10:19 Total Bilirubin 0.3 mg/dL (0.2-1.2) 08/19/19 10:19 AST 26 U/L (5-34) 08/19/19 10:19 ALT 20 U/L (8-55) 08/19/19 10:19 Alkaline Phosphatase 154 U/L (40-110) H 08/19/19 10:19 Serum Total Protein 7.8 g/dL (5.8-8.1) 08/19/19 10:19 Albumin 3.5 g/dL (3.4-4.8) 08/19/19 10:19 Lipase 20 U/L (8-78) 08/19/19 10:19 Urine Ketones Negative mg/dL (Negative) 08/19/19 10:15 Urine Blood Large (Negative) A 08/19/19 10:15 Urine Nitrite Negative (Negative) 08/19/19 10:15 Ur Leukocyte Esterase Large (Negative) H 08/19/19 10:15 Urine RBC Greater than 50 HPF (0-3) A 08/19/19 10:15 Urine WBC 11-20 HPF (0-3) A 08/19/19 10:15 Ur Squamous Epith Cells None Seen HPF (0-3) 08/19/19 10:15 Urine Bacteria 1+ HPF (None Seen) A 08/19/19 10:15 FMR H&P: A/P - Problem List (1) Intractable abdominal pain Current Visit: Yes Status: Acute Code(s): R10.9 - UNSPECIFIED ABDOMINAL PAIN (2) HLD (hyperlipidemia) Current Visit: Yes Status: Acute Code(s): E78.5 - HYPERLIPIDEMIA, UNSPECIFIED (3) Anxiety Current Visit: Yes Status: Acute Code(s): F41.9 - ANXIETY DISORDER, UNSPECIFIED (4) GERD (gastroesophageal reflux disease) Current Visit: Yes Status: Acute Code(s): K21.9 - GASTRO-ESOPHAGEAL REFLUX DISEASE WITHOUT ESOPHAGITIS (5) IVC thrombosis Current Visit: Yes Status: Acute Code(s): I82.220 - ACUTE EMBOLISM AND THROMBOSIS OF INFERIOR VENA CAVA (6) Acute blood loss anemia Current Visit: No Status: Acute Code(s): D62 - ACUTE POSTHEMORRHAGIC ANEMIA (7) Hematuria Current Visit: No Status: Acute Code(s): R31.9 - HEMATURIA, UNSPECIFIED (8) Hypertension Current Visit: No Status: Acute Code(s): I10 - ESSENTIAL (PRIMARY) HYPERTENSION Qualifiers: Hypertension type: essential hypertension Qualified Code(s): I10 - Essential (primary) hypertension - Plan 1. Gross hematuria in the setting of renal cell carcinoma Patient currently on chemo tx for bilateral RCC. Gross hematuria with clots from smith x 1 day. Hgb 9.4, stable at baseline. Urine output was pink on admission without clots present. UA showed + RBC, + WBC and + bacteria. Creatinine 1.74, previous admission was 1.53. Vitals stable. -Monitor vitals -CBC daily -Consult urology -F/u oncology recs -Next chemo scheduled for 08/20 2. Sepsis 2/2 UTI Patient met sepsis criteria due to WBC 13.3 and tachycardia with source. Due to hx UTI 2/2 indwelling smith, acute lower quadrant abdominal pain and UA positive for bacteria, patient placed on Rocephin for UTI. -Begin rocephin 1g once daily -F/u blood culture -F/u urine culture -LR 120 x 2 bags -Procal -CBC/CMP daily -Consult urology 3. Intractable pain 2/2 renal cell carcinoma Patient on Tramadol and flexeril PRN at home. Pain likely due to cancer with UTI causing an acute change. -Morphine 4mg PRN -Continue home flexeril 4. Hematochezia Patient reports episode of bloody BM yesterday. Has a history of hematochezia in the past. Colonoscopy 1 month ago showed no malignancy. Rectal exam showed no apparent blood. -CBC daily -Currently NPO 5. 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 Patient not on anticoagulation due to recurrent bleeding. -DVTs 6. Hyponatremia Na 132 on admission. Likely due to recent poor PO intake. Patient receiving IV fluids. -Monitor 7. Hyperkalemia K 5.2 on admission. Likely due to poor kidney function 2/2 renal cell carcinoma and poor PO intake. Patient receiving IV fluids. -Monitor 8. HLD -Continue home meds 9. Anxiety -Continue home meds 10. GERD -Continue home meds 11. HTN Patient states he does not take BP medications anymore -Monitor PCP: Adrienne Code: Full DVT ppx: SCDs GI ppx: Protonix Dispo: Admit to oncology floor FMR H&P: Upper Level - Plan Date/Time: 08/19/19 8739 I, Randy Do DO, have evaluated this patient and agree with findings/plan as outlined by intern product marketing manager resident. Pertinent changes/additions are listed here. 74 yo m w pmhx sig for b/l RCC, DVT of IVC He reports he has been feeling poorly for the past few days, unable to tolerate PO, increased lower abdominal and back pain. Additionally he notes gross, painless hematuria. He is unsure if he is having hematochezia. Following with Dr. Peng for chemotherapy. He denies fever, dysuria, chest pain, sob, pre/ syncope, or visual changes. In the ED he got 1L of fluid and oncology was contacted, who recommended admission. His CT abdomen revealed lengthening of the DVT in his IVC. Stable b/l renal masses. Tachycardic, normotensive, CTAB, RR , no sig murmur, abdomen TTP, and rectal exam did not reveal mass or gross blood , urinal at bedside with maroon urine. Hb stable and increased from previous hospitalization, wbc elevation. UA pos for gross blood, bacteria. Will treat sepsis 2/2 UTI with rocephin, obtain b/ucx, procal. s/p bolus in ED, IVF rescus to treat YEIMI/hyperkalemia, monitor. In regards to possible GI bleed, we will make npo, start protonix. Consider GI consult in AM if documented bleed overnight, of note, he was scoped on his last admission which was unremarkable. We will treat nausea and pain with prn meds. No urgent urology consult indicated , will notify in AM. Onc service is aware, update Dr. Peng in AM. Admit to oncology, ELOS>48. Addendum - Attending - Attending Attestation Date/Time: 08/19/19 2014 I personally evaluated the patient and discussed the management with Dr. Hagan I agree with the History, Examination, Assessment and Plan documented above with any addition or exceptions noted below- 74 yo male with h/o b/l renal cell cancer, thrombus in IVC, HTN, who reports he has been feeling poorly for the past few days, unable to tolerate PO, increased lower abdominal and back pain. Additionally he notes gross, painless hematuria. Also c/o constipation and has had to strain to have a bowel movement and may have had some blood in his stool. Denies any fever/chills. Has inwelling smith. PMH/PSH/Meds/SH reviewed and agree with resident's documentation. Afebrile VSS. Exam repeated by me and agree with resident's findings. Labs: WBC=13.3, H/H=9.4/29.9, Bts=801, Zj=556, K =5.2, Rj=276, CO2=22, BUN/Cr=23/1.74, Erto=970, U/A=large blood, large LE, 4+ protein, RBC>50, WBC 11-20, 1+ bacteria. CT abd/pelvis- stable renal masses; extension of thrombus in IVC above level of diaphragm almost to level of right atrium. A/P: 1) Hematuria most likely secondary to renal cell cancer; possible UTI- admit to oncology; started on rocephin. Urine culture pending. Will notify urology in AM 2) Renal cell cancer - wioll notify oncology in am of patient's admission. 3) IVC thrombus- unable to anticoagulate given pateint's episode of hematuria; will discuss with specialists.
[2019-08-19] MEDS: Lactated Ringer's 1,000 ML IV SCH (17:49)
[2019-08-19 17:55] VITALS: BMI 31.1
[2019-08-19] MEDS: cefTRIAXone\\ROCEPHIN 1 GM in Sodium Chloride 0.9% 100 ML IVPB SCH (18:31)
[2019-08-19] MEDS: Pantoprazole 40 MG VIAL IVP SCH (20:50)
[2019-08-19] MEDS: Morphine 4 MG/ML VIAL SLOW IVP PRN (20:51)
[2019-08-20] MEDS: Lactated Ringer's 1,000 ML IV SCH (02:46)
[2019-08-20] MEDS: Morphine 4 MG/ML VIAL SLOW IVP PRN ×2 (02:51→07:43)
[2019-08-20 06:05] LABS: #Basophils 0.1 thou/uL (0.0-0.2); #Eosinphils 0.7 thou/uL (0.0-0.7); #Monocytes 0.9 thou/uL (0.11-0.59); #Neutrophils 9.3 thou/uL (1.40-6.50); %Basophils 0.6 % (0.0-1.0); %Eosinophils 6.1 % (0.0-10.0); %Lymphocytes 8.3 % (21.0-51.0); %Monocytes 7.4 % (0.0-10.0); %Neutrophils 77.6 % (42.0-75.0); Hemoglobin 9.1 g/dL (14.0-18.0); Mean Corpuscular Volume 90.1 fL (78.0-98.0); Mean Platelet Volume 6.1 fL (7.4-10.4); Platelet Count 312 thou/uL (130-400); RBC Distribution Width 16.6 % (11.5-14.5); Red Blood Cell (RBC) Count 3.26 mill/uL (4.70-6.10)
--- NOTE | 2019-08-20 06:20 | PDOC.FM ---
- Subjective Subjective: Doing well this morning. States his back itched all night and kept him up. His pain is well controlled at home with Tramadol and Flexeril, he likes the morphine however he is worried about becoming constipated. He denies any bloody bowel movements since arrival. He would like to have a diet. - Objective MAR Reviewed: Yes Vital Signs & Weight: Vital Signs (12 hours) Temp Pulse Resp BP Pulse Ox 08/20/19 03:49 98.7 F 109 H 16 133/63 95 08/19/19 23:46 98.7 F 106 H 16 140/68 95 08/19/19 20:00 98.5 F 103 H 20 136/70 94 L 08/19/19 19:29 95 Weight Weight 92.85 kg I&O: 08/18/19 08/19/19 08/20/19 06:59 06:59 06:59 Intake Total 0 Output Total 875 Balance -875 Result Diagrams: 08/20/19 05:55 08/20/19 05:55 Phys Exam - Physical Examination Constitutional: NAD HEENT: moist MMs Neck: supple, full ROM Respiratory: no wheezing, no rales, no rhonchi, clear to auscultation bilateral Cardiovascular: RRR, no significant murmur Gastrointestinal: soft TTP 1+ pitting edema BLE Neurological: moves all 4 limbs Psychiatric: normal affect, A&O x 3 Skin: no rash, normal turgor Dx/Plan (1) GERD (gastroesophageal reflux disease) Code(s): K21.9 - GASTRO-ESOPHAGEAL REFLUX DISEASE WITHOUT ESOPHAGITIS Status: Acute (2) HLD (hyperlipidemia) Code(s): E78.5 - HYPERLIPIDEMIA, UNSPECIFIED Status: Acute (3) IVC thrombosis Code(s): I82.220 - ACUTE EMBOLISM AND THROMBOSIS OF INFERIOR VENA CAVA Status : Acute (4) Intractable abdominal pain Code(s): R10.9 - UNSPECIFIED ABDOMINAL PAIN Status: Acute (5) Acute blood loss anemia Code(s): D62 - ACUTE POSTHEMORRHAGIC ANEMIA Status: Acute (6) Hematochezia Code(s): K92.1 - MELENA Status: Acute (7) Hematuria Code(s): R31.9 - HEMATURIA, UNSPECIFIED Status: Acute (8) Hypertension Code(s): I10 - ESSENTIAL (PRIMARY) HYPERTENSION Status: Acute Qualifiers: Hypertension type: essential hypertension Qualified Code(s): I10 - Essential (primary) hypertension (9) Renal mass Code(s): N28.89 - OTHER SPECIFIED DISORDERS OF KIDNEY AND URETER Status: Acute - Plan Plan: Gross hematuria, bilateral renal cell carcinoma -Currently on chemotherapy. -UA showed + RBC, + WBC and + bacteria. -Consult urology -F/u oncology recs -Next chemo scheduled for 08/20, will consult oncology. -Will monitor with serial H&H. Sepsis 2/2 UTI -Begin rocephin 1g once daily -Cultures pending -Consult urology Intractable pain 2/2 renal cell carcinoma -Patient on Tramadol and flexeril PRN at home. Will restart home regimen today and add bowel regimen. Hematochezia Patient reports episode of bloody BM yesterday. Has a history of hematochezia in the past. Colonoscopy 1 month ago showed no malignancy. Rectal exam showed no apparent blood. -CBC daily -Start clear liquid diet and advance as tolerated. 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 -Patient not a candidate for anticoagulation due to recurrent bleeding. Hyponatremia -Patient receiving IV fluids, will monitor Hyperkalemia -Patient receiving IV fluids, will monitor HLD -Continue home meds Anxiety -Continue home meds GERD -Continue home meds HTN Patient states he does not take BP medications anymore -Monitor PCP: Adrienne Code: Full DVT ppx: SCDs GI ppx: Protonix Dispo: Stable, admit to oncology floor Addendum - Attending - Attending Attestation Date/Time: 08/20/19 3488 I personally evaluated the patient and discussed the management with Dr. Hayes. I agree with the History, Examination, Assessment and Plan documented above with any addition or exceptions noted below. Awaiting recommendations from urology and oncology. IVC thrombus is enlarging. Discussed possible tx to [facility]. patient was hesitant about transfer but will defer to specialist regarding this. Will also consider palliative consult given his multiple comorbid conditions.
[2019-08-20] MEDS ORDERED: Senokot S 8.6-50 MG TAB PO PRN (06:21)
[2019-08-20] MEDS ORDERED: guaiFENesin ER 600 MG TAB PO PRN (06:21)
[2019-08-20 06:25] LABS: Anion Gap 12 mmol/L (10-20); BUN (Urea Nitrogen) 20 mg/dL (8.4-25.7); Calc. Creatinine Clearance 56 mL/min (70-130); Calcium 8.6 mg/dL (7.8-10.44); Carbon Dioxide 22 mmol/L (23-31); Chloride 106 mmol/L (98-107); Estimated GFR-MDRD 45; Glucose 87 mg/dL (83-110); Sodium 135 mmol/L (136-145)
[2019-08-20] MEDS: Pantoprazole 40 MG VIAL IVP SCH ×2 (07:47→21:19)
[2019-08-20] MEDS: diphenhydrAMINE 30 GM TUBE TOP PRN ×3 (08:52→21:47)
[2019-08-20] MEDS: cefTRIAXone\\ROCEPHIN 1 GM in Sodium Chloride 0.9% 100 ML IVPB SCH (16:34)
--- NOTE | 2019-08-20 16:52 | CON ---
DATE OF CONSULTATION: REASON FOR CONSULTATION: Renal mass. CHIEF COMPLAINT: Hematuria. HISTORY OF PRESENT ILLNESS: This is a 74-year-old male, who was recently admitted for hematuria, at which point, he was found to have a large right renal mass with IVC involvement and two smaller left renal masses. There was some concern for bladder mass on initial imaging. However, he has since undergone cystoscopy showing no bladder pathology. He has had issues with urinary retention and has failed two void trial since his last hospitalization and is now managed with long-term urethral catheter. He has been undergoing systemic therapy with Medical Oncology, however, yesterday noted increased blood in his catheter with several clots and so presented to the hospital. He has been admitted by Family Medicine, who have started him on antibiotics for presumed urinary tract infection. The patient is complaining of abdominal pain more in the right lower quadrant up to 10/10 at times. He also notes back pain. He has been feeling lightheaded recently and anxious. He has also had nausea and vomiting over the last couple of days. He currently denies bladder pain, fevers, or chills. ALLERGIES: NO KNOWN ALLERGIES. MEDICATIONS: Reviewed. No pertinent urology medications. PAST MEDICAL HISTORY: Prostate cancer, hypertension, arthritis, hyperlipidemia, and renal cell carcinoma as noted above. PAST SURGICAL HISTORY: Cataracts, prostatectomy, and hernia. SOCIAL HISTORY: Former smoker with a remote smoking history. Lives by himself. REVIEW OF SYSTEMS: Ten-point review of systems negative except as mentioned in my HPI. PHYSICAL EXAMINATION: VITAL SIGNS: Afebrile, tachycardic, otherwise stable. Good urine output. GENERAL: No acute distress, conversant. HEENT: Head, normocephalic and atraumatic. Extraocular movements intact. Sclerae are nonicteric. NECK: Supple. Trachea midline. LUNGS: Breathing unlabored. Symmetric chest expansion. ABDOMEN: Soft, nontender, and nondistended. Palpable right-sided abdominal mass. GENITOURINARY: Holbrook catheter in good position draining clear yellow urine. SKIN: Warm and dry. EXTREMITIES: No peripheral edema or cyanosis. NEUROLOGIC: Alert and oriented x3. PSYCHIATRIC: Normal mood, appropriate affect. LABORATORY DATA: Laboratory values reviewed. White count 13.3 yesterday, 12.0 today. Creatinine 1.74 yesterday, 1.52 today. Hemoglobin 9.4 yesterday, 9.1 today. Urinalysis, large blood and leukocytes. Preliminary culture, E coli. IMAGING DATA: I personally reviewed his CT scan from August 18, which shows unchanged bilateral renal masses. However, the IVC thrombus has extended almost to the right atrium. 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 The patient will have intermittent gross hematuria from his renal mass until this is treated. His thrombus has progressed and I once again advised that his option for treating this would require him to be transferred to [facility]. As with his previous admission, he does not want to leave the city for treatment and I once again explained to him that there is nobody in this town and likely no hospital that can adequately manage the patient undergoing a surgery of that sort. We discussed his option of transfer to [facility] versus Palliative Care consult. He is going to discuss this with the sister and he and I will revisit this issue later today. Holbrook catheter to remain. Agree with antibiotics for now. Greater than 70 minutes spent in the patient's care. Job ID: [id number]
--- NOTE | 2019-08-20 18:20 | CON ---
DATE OF CONSULTATION: REASON FOR CONSULTATION: Renal cell carcinoma. HISTORY OF PRESENT ILLNESS: Mr. Moscoso is a 74-year-old gentleman, who was diagnosed with locally advanced right and left renal cell carcinoma. He had a 14 cm right kidney mass and a 4 cm left kidney mass. At time of diagnosis, there was 1.8 cm liver lesion that was indeterminate. He had a bladder lesion, which ended up being a clot on cystoscopy by Dr. Brower. He started immunotherapy with Yervoy a and Opdivo as he was not currently resectable. He received one dose on July 30. The patient has had a tumor thrombus that extends into the right renal vein and the inferior vena cava and right renal pelvis. He has not been able to have anticoagulation secondary to significant hematuria. He has been struggling with abdominal pain since diagnosis and presented to the emergency room yesterday with similar complaints. He has an indwelling catheter. He also states he has been having some hematochezia, which may be secondary to hemorrhoids. He did have a colonoscopy at diagnosis that was essentially negative. Repeat CT scan done on this admission showed overall stable bilateral renal cell carcinomas. There was definite progression of the thrombus within the inferior vena cava and extending to the level of the hemidiaphragm and almost to the right atrium. The patient denies any complaints at this time. He is on routine pain medication. PAST MEDICAL HISTORY: 1. Bilateral renal cell carcinoma. 2. 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 3. Hypertension. 4. High cholesterol. 5. Acid reflux. 6. Prostate cancer in 2004. PAST SURGICAL HISTORY: 1. Cervical spine surgery. 2. Cystoscopy. FAMILY HISTORY: Mother had lung cancer. SOCIAL HISTORY: He is , has 3 children. He is a former smoker. Lives alone. ALLERGIES: NO KNOWN DRUG ALLERGIES. HOME MEDICATIONS: 1. Nexium. 2. Swetha. 3. Zocor. 4. Mucinex. 5. Senokot. 6. Ultram. REVIEW OF SYSTEMS: A 10-point review of systems is negative except for noted in HPI. PHYSICAL EXAMINATION: VITAL SIGNS: Temperature 98.2, pulse is 113, respiratory rate 18, BP is 137/ 65. He is 96% on room air. GENERAL: He is a well-developed, well-nourished male, in no acute distress. HEENT: Normocephalic and atraumatic. Pupils are equal and reactive to light. NECK: Supple. CV: Regular rate and rhythm. LUNGS: Clear anterior. ABDOMEN: Obese and nontender. Bowel sounds are positive. EXTREMITIES: No clubbing or cyanosis. SKIN: No rash. : He has a Holbrook catheter in place. NEUROLOGIC: Nonfocal. PERTINENT LABS AND X-RAYS: Current WBCs are 12, hemoglobin 9.1, hematocrit 29.4 , platelet count is 312,000, 77% neutrophils, 8% lymphocytes. PT is 15.1, INR is 1.2, and PTT is 28.4. Sodium 135, potassium 5, chloride is 106, CO2 is 22, BUN is 20 , creatinine 1.54, calcium is 8.6, bilirubin 0.3, ALT is 20, alkaline phosphatase is 154. Serum total protein is 5.8, albumin 3.5, globulin 4.3, and lipase is 20. Urine has 1+ bacteria with large amount of blood. ASSESSMENT: 1. Bilateral renal cell carcinoma, status post cycle 1 of Arpitrvkevin and Solo. 2. 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 3. Hematuria. DISCUSSION: The patient had a thrombus in his right renal vein and inferior vena cava at diagnosis. He is unable to be anticoagulated secondary to significant urinary bleeding. Recent scan showed progression tumor thrombus. I have discussed with Dr. Peng. We will get Dr. Bowers to give his opinion regarding the thrombus and possible treatment. The patient's pain and anxiety are controlled with medications. Dr. Brower has also been consulted. Job ID: [id number] [facility]
--- NOTE | 2019-08-20 18:20 | CON ---
DATE OF CONSULTATION: HISTORY OF PRESENT ILLNESS: This is an unfortunate 74-year-old gentleman who had a history of a radical prostatectomy, and in followup, had some gross hematuria about a week or 2 ago. 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 He was sent home only to be readmitted to the hospital with failure to thrive as well as the difficulty of voiding. He was begun on treatment by Oncology. PAST MEDICAL HISTORY: Includes: 1. Hypertension. 2. Dyslipidemia. 3. Prostate cancer. PAST SURGICAL HISTORY: Includes: 1. Prostatectomy. 2. Hernia repair. 3. Neck surgery with titanium rods. 4. Cataract surgery. SOCIAL HISTORY: He currently lives with his son, although per the patient, that is mostly by himself. He is a former smoker. PHYSICAL EXAMINATION: GENERAL: Today, he is a pale gentleman, in no distress. VITAL SIGNS: With a resting tachycardia of about 110 to 120 and blood pressure is 137. NECK: No cervical adenopathy. CARDIAC: Resting tachycardia with no murmurs. ABDOMEN: Protuberant, nontender. EXTREMITIES: He has pitting edema in both legs, 1+. He has palpable femoral pulses and right dorsalis pedis and I do not appreciate a left pedal pulses. His radial pulses are intact. ASSESSMENT: I have reviewed his CT scan and discussed this with the patient. His options are rather limited at this time. One option would be referral down to [facility] for major surgery to resect his renal cell carcinoma perhaps bilaterally as well as tumor extraction from the inferior vena cava. Given his age and general condition now, I think that would be a rather heroic approach, more than likely hospice is going to offer him the most reasonable treatment option at this time. Job ID: [id number]
[2019-08-20] MEDS: traMADol HCl 50 MG TAB PO PRN (18:29)
[2019-08-20] MEDS: Melatonin 3 MG TAB PO SCH (21:19)
[2019-08-21] MEDS ORDERED: Polyethylene Glycol 3350 17 GM Packet PO PRN (05:31)
--- NOTE | 2019-08-21 05:33 | PDOC.FM ---
- Subjective Subjective: Doing well this morning. Had a long discussion about palliative care and hospice. He does not feel that his body can withstand more chemotherapy or a trip to [place] for more testing/treatment. He wants to spend his time left with his family. - Objective MAR Reviewed: Yes Vital Signs & Weight: Vital Signs (12 hours) Temp Pulse Resp BP Pulse Ox 08/20/19 20:00 98.2 F 104 H 16 132/72 98 Weight Admit Weight 92.85 kg Weight 92.85 kg I&O: 08/19/19 08/20/19 08/21/19 06:59 06:59 06:59 Intake Total 0 720 Output Total 875 800 Balance -875 -80 Result Diagrams: 08/20/19 05:55 08/21/19 07:04 Phys Exam - Physical Examination Constitutional: NAD HEENT: PERRLA, moist MMs Neck: supple, full ROM Respiratory: no wheezing, no rales, no rhonchi, clear to auscultation bilateral Cardiovascular: RRR, no significant murmur Gastrointestinal: soft TTP Musculoskeletal: pulses present Neurological: moves all 4 limbs Psychiatric: A&O x 3 Skin: no rash, normal turgor Dx/Plan (1) GERD (gastroesophageal reflux disease) Code(s): K21.9 - GASTRO-ESOPHAGEAL REFLUX DISEASE WITHOUT ESOPHAGITIS Status: Acute (2) HLD (hyperlipidemia) Code(s): E78.5 - HYPERLIPIDEMIA, UNSPECIFIED Status: Acute (3) IVC thrombosis Code(s): I82.220 - ACUTE EMBOLISM AND THROMBOSIS OF INFERIOR VENA CAVA Status : Acute (4) Intractable abdominal pain Code(s): R10.9 - UNSPECIFIED ABDOMINAL PAIN Status: Acute (5) Acute blood loss anemia Code(s): D62 - ACUTE POSTHEMORRHAGIC ANEMIA Status: Acute (6) Hematochezia Code(s): K92.1 - MELENA Status: Acute (7) Hematuria Code(s): R31.9 - HEMATURIA, UNSPECIFIED Status: Acute (8) Hypertension Code(s): I10 - ESSENTIAL (PRIMARY) HYPERTENSION Status: Acute Qualifiers: Hypertension type: essential hypertension Qualified Code(s): I10 - Essential (primary) hypertension (9) Renal mass Code(s): N28.89 - OTHER SPECIFIED DISORDERS OF KIDNEY AND URETER Status: Acute - Plan Plan: Gross hematuria, bilateral renal cell carcinoma -Currently on chemotherapy. -UA showed + RBC, + WBC and + bacteria. -Urology consulted, appreciate recommendations. Per yesterday's visit, he is considering transfer to [facility] VS palliative care. -Palliative care consulted for complex decision making and support. -Oncology consulted, appreciate recommendations. -Patient seems ready to go home with hospice care. Will await recommendations from PC team and consult CM for help with picking agency. Sepsis 2/2 UTI -Begin rocephin 1g once daily (08/18) -Culture shows E Coli, sensitive to most antibiotics. Will consider transitioning to oral therapy for a total of 7 days abx. -Urology consulted, appreciate recommendations. Pain 2/2 renal cell carcinoma, at baseline -Patient on Tramadol and flexeril PRN at home. Will restart home regimen today and add bowel regimen. Hematochezia, resolved. -Colonoscopy 1 month ago showed no malignancy. Rectal exam showed no apparent blood. 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 -Patient not a candidate for anticoagulation due to recurrent bleeding. -CV Surgery consulted, appreciate recommendations. At this time, it is believed that this could potentially be extension of the tumor rather than thrombus. Recommended hospice care vs major resection surgery at [facility]. Hyponatremia, improving -Patient receiving IV fluids, will monitor Hyperkalemia, resolved HLD -Continue home meds Anxiety -Continue home meds GERD -Continue home meds HTN Patient states he does not take BP medications anymore -Monitor PCP: Adrienne Code: Full DVT ppx: SCDs GI ppx: Protonix Dispo: Stable, admit to oncology floor Addendum - Attending - Attending Attestation Date/Time: 08/21/19 1600 I personally evaluated the patient and discussed the management with Dr. Hayes. I agree with the History, Examination, Assessment and Plan documented above with any addition or exceptions noted below. He appears to be transitioning to more palliative measures. Will switch abx to PO bactrim. Pending specialist recommendations, hopefully d/c in the next 1-2 days with HH vs hospice.
[2019-08-21 07:46] LABS: Anion Gap 13 mmol/L (10-20); BUN (Urea Nitrogen) 21 mg/dL (8.4-25.7); Calc. Creatinine Clearance 55 mL/min (70-130); Calcium 8.4 mg/dL (7.8-10.44); Carbon Dioxide 22 mmol/L (23-31); Chloride 104 mmol/L (98-107); Estimated GFR-MDRD 44; Glucose 92 mg/dL (83-110); Potassium 4.7 mmol/L (3.5-5.1); Sodium 134 mmol/L (136-145)
[2019-08-21] MEDS: Pantoprazole 40 MG VIAL IVP SCH (08:34)
[2019-08-21] MEDS: Senokot S 8.6-50 MG TAB PO SCH ×2 (08:39→21:13)
[2019-08-21] MEDS: diphenhydrAMINE 30 GM TUBE TOP PRN ×3 (08:44→23:56)
--- NOTE | 2019-08-21 09:10 | PDOC.MOPN ---
Interval History: Pt feeling ok today, still w/abdominal cramping and constipation. - Vital Signs Vital Signs: Vital Signs (12 hours) Temp Pulse Resp BP Pulse Ox 08/21/19 07:39 97.6 F 100 16 117/67 96 08/21/19 07:37 98 Weight Admit Weight 204 lb 11.2 oz Weight 204 lb 11.2 oz - Physical Exam General: Alert, Oriented x3, Cooperative HEENT: EOMI Lungs: Normal air movement Abdomen: Soft Psych/Mental Status: Mood NL - Labs Result Diagrams: 08/20/19 05:55 08/21/19 07:04 Lab results: Laboratory Results - last 24 hr 08/21/19 07:04: Sodium 134 L, Potassium 4.7, Chloride 104, Carbon Dioxide 22 L, Anion Gap 13, BUN 21, Creatinine 1.56 H, Estimated GFR (MDRD) 44, Glucose 92, Calcium 8.4 A/P - Problem (1) Renal cell carcinoma Current Visit: Yes Code(s): C64.9 - MALIGNANT NEOPLASM OF UNSP KIDNEY, EXCEPT RENAL PELVIS Status: Acute - Plan Plan: I discussed treatment options with the patient and his sister regarding his RCC and IVC thrombus. He cannot receive AC due to bleeding and and IVC filter would not be of benefit which leaves a very aggressive surgery in [place] as the only option and he declines this and I do not think he is a medical candidate given PS, as per Dr. Bowers. I discussed either hospice or continuing treatment with Opdivo alone q4wk and restaging in 2 months and his cancer may improve. He is undecided at the time. If he wishes to pursue treatment then will schedule him for outpatient treatment at discharge.
[2019-08-21] MEDS: Cyclobenzaprine 10 MG TAB PO PRN ×2 (12:35→21:14)
[2019-08-21] MEDS ORDERED: Albuterol Sulfate 2.5 mg/3 ml Neb NEB PRN (15:18)
[2019-08-21] MEDS ORDERED: Loratadine 10 MG TAB PO PRN (15:30)
--- NOTE | 2019-08-21 16:21 | PRG ---
DATE OF SERVICE: 08/21/2019 The patient's catheter has its clotted off this afternoon. I attempted to irrigate a 16-[place] catheter with no success. This was then removed, and under sterile conditions, a 22-[place] 3-way catheter was placed, irrigating several large clots out with irrigation clear afterwards. I then connected continuous bladder irrigation on slow drip, which was light pink at that point. He tolerated the procedure well. Job ID: [id number]
[2019-08-21] MEDS: traMADol HCl 50 MG TAB PO PRN (16:23)
--- NOTE | 2019-08-21 16:38 | PRG ---
DATE OF SERVICE: 08/21/2019 SUBJECTIVE: No acute events overnight. The patient denies any changes to his pain either improvement or worsening. He is not having chest pains, difficulty breathing, headache, or vision changes. He had developed an episode of gross hematuria this afternoon and feels that his bladder is full. OBJECTIVE: VITAL SIGNS: Afebrile, vitals stable. Urine output has been 800 mL today. GENERAL: No acute distress, resting in bed, conversant. LUNGS: Unlabored breathing, symmetric chest expansion. ABDOMEN: Soft, tender over the right side, nondistended. Holbrook catheter in position with gil blood in the drainage tubing. SKIN: Warm and dry. NEUROLOGIC: Alert and oriented x3. PSYCHIATRIC: Normal mood and affect. LABORATORY DATA: Reviewed. Hemoglobin 9.1 yesterday. Creatinine 1.56 today. Urine culture has resulted Escherichia coli resistant to Cipro and Levaquin. ASSESSMENT AND PLAN: Metastatic renal cell carcinoma with large right renal mass with tumor thrombus up to the right atrium, 2 small likely metastatic tumors in the left kidney. The patient is still considering hospice versus continued chemotherapy treatments. He has directed full code at this point. I discussed this issue with him again today and given this episode of gross hematuria this afternoon, I do not think he is stable to go home with home health, and I have advised the managing family practice team that he needs to have H and H checked with serial H and H if he continues to have hematuria. I did discuss with the patient that given this level of hematuria, very possible that he will continue to have these episodes requiring transfusion or ultimately his demise. At this point, I am not certain that chemotherapy is even an option as he may not survive long enough for this. He expressed understanding, but is very hesitant to make a decision. We will continue support him and manage issues as they arise. Job ID: [id number]
[2019-08-21 17:09] LABS: Hemoglobin 8.8 g/dL (14.0-18.0); Platelet Count 345 thou/uL (130-400)
[2019-08-21] MEDS: Melatonin 3 MG TAB PO SCH (21:14)
[2019-08-21] MEDS: Sulfameth/Trimethoprim DS 800-160mg TAB PO SCH (21:14)
[2019-08-21 22:03] LABS: Hemoglobin 7.9 g/dL (14.0-18.0); Platelet Count 323 thou/uL (130-400)
[2019-08-22 03:55] LABS: #Eosinphils 0.5 thou/uL (0.0-0.7); #Lymphocytes 1.6 thou/uL (1.20-3.40); #Monocytes 1.2 thou/uL (0.11-0.59); #Neutrophils 10.2 thou/uL (1.40-6.50); %Basophils 0.4 % (0.0-1.0); %Eosinophils 3.9 % (0.0-10.0); %Lymphocytes 11.5 % (21.0-51.0); %Monocytes 9.1 % (0.0-10.0); %Neutrophils 75.2 % (42.0-75.0); Hemoglobin 7.7 g/dL (14.0-18.0); Mean Corpuscular Volume 90.3 fL (78.0-98.0); Mean Platelet Volume 6.5 fL (7.4-10.4); Platelet Count 287 thou/uL (130-400); RBC Distribution Width 16.5 % (11.5-14.5); Red Blood Cell (RBC) Count 2.73 mill/uL (4.70-6.10); White Blood Cell (WBC) Count 13.6 thou/uL (4.8-10.8)
--- NOTE | 2019-08-22 05:59 | PDOC.FM ---
- Subjective Subjective: Resting comfortably this morning. He is still very unsure about his wishes as far as treatment goes. Again, we discussed palliative care/hospice vs pursuing treatment. He does not know that he is strong enough for further chemotherapy. He is unsure about receiving a transfusion if he continues to bleed. - Objective MAR Reviewed: Yes Vital Signs & Weight: Vital Signs (12 hours) Temp Pulse Resp BP Pulse Ox 08/21/19 19:30 97.8 F 115 H 20 134/63 96 Weight Admit Weight 92.85 kg Weight 92.85 kg I&O: 08/20/19 08/21/19 08/22/19 06:59 06:59 06:59 Intake Total 0 720 1360 Output Total 609 076 4351 Balance -750 -09 -6531 Result Diagrams: 08/22/19 03:33 08/22/19 03:33 Phys Exam - Physical Examination Constitutional: NAD HEENT: PERRLA, moist MMs Neck: supple Respiratory: no wheezing, no rales, no rhonchi, clear to auscultation bilateral Cardiovascular: RRR, no significant murmur Gastrointestinal: soft TTP Musculoskeletal: no edema, pulses present Neurological: non-focal, moves all 4 limbs Psychiatric: normal affect, A&O x 3 Skin: no rash Dx/Plan (1) GERD (gastroesophageal reflux disease) Code(s): K21.9 - GASTRO-ESOPHAGEAL REFLUX DISEASE WITHOUT ESOPHAGITIS Status: Acute (2) HLD (hyperlipidemia) Code(s): E78.5 - HYPERLIPIDEMIA, UNSPECIFIED Status: Acute (3) IVC thrombosis Code(s): I82.220 - ACUTE EMBOLISM AND THROMBOSIS OF INFERIOR VENA CAVA Status : Acute (4) Intractable abdominal pain Code(s): R10.9 - UNSPECIFIED ABDOMINAL PAIN Status: Acute (5) Acute blood loss anemia Code(s): D62 - ACUTE POSTHEMORRHAGIC ANEMIA Status: Acute (6) Hematochezia Code(s): K92.1 - MELENA Status: Acute (7) Hematuria Code(s): R31.9 - HEMATURIA, UNSPECIFIED Status: Acute (8) Hypertension Code(s): I10 - ESSENTIAL (PRIMARY) HYPERTENSION Status: Acute Qualifiers: Hypertension type: essential hypertension Qualified Code(s): I10 - Essential (primary) hypertension (9) Renal mass Code(s): N28.89 - OTHER SPECIFIED DISORDERS OF KIDNEY AND URETER Status: Acute - Plan Plan: Gross hematuria, bilateral renal cell carcinoma -Urology consulted, appreciate recommendations. -Palliative care consulted for complex decision making and support. -Oncology consulted, appreciate recommendations. -Yesterday, began having gil blood in his smith. Dr. Brower exchanged smith to 3-way for continuous bladder irrigation. His hb has dropped form 9 to 7.7. Will discuss transfusion today and goals of care. He was previously in agreement with hospice care, however, we will revisit. Thrombus vs mass in IVC -CT A/P showed progression of IVC thrombus. -Patient not a candidate for anticoagulation due to recurrent bleeding. -He declined surgical intervention. UTI -Begin rocephin 1g once daily (08/18-08/20) D/c rocephin and start Bactrim 08/20 for 7 days. Pain 2/2 renal cell carcinoma, at baseline -Patient on Tramadol and flexeril PRN at home. Will restart home regimen today and add bowel regimen. Hematochezia, resolved. Hyponatremia, improving Hyperkalemia, resolved HLD -Continue home meds Anxiety -Continue home meds GERD -Continue home meds HTN Patient states he does not take BP medications anymore -Monitor PCP: Adrienne Code: Full DVT ppx: SCDs GI ppx: Protonix Dispo: Guarded, inpatient on oncology floor Addendum - Attending - Attending Attestation Date/Time: 08/22/19 5464 I personally evaluated the patient and discussed the management with Dr. Hayes. I agree with the History, Examination, Assessment and Plan documented above with any addition or exceptions noted below. Bleeding from bladder has slowed and CBI is clear. I discussed hospice care with him today and offered to arrange a family meeting for him but he is not ready at this time. He states his daughter is traveling from out of state to see him in the next few days. Will continue to monitor him in the hospital today. His overall prognosis is very poor. I feel hospice is a very reasonable option given that he is a nonsurgical candidate and will likely continue to have this recurrent urinary system bleeds.
[2019-08-22 06:19] LABS: Anion Gap 11 mmol/L (10-20); BUN (Urea Nitrogen) 21 mg/dL (8.4-25.7); Calc. Creatinine Clearance 54 mL/min (70-130); Calcium 8.1 mg/dL (7.8-10.44); Carbon Dioxide 23 mmol/L (23-31); Chloride 102 mmol/L (98-107); Estimated GFR-MDRD 43; Glucose 94 mg/dL (83-110); Potassium 4.8 mmol/L (3.5-5.1); Sodium 131 mmol/L (136-145)
[2019-08-22] MEDS: Senokot S 8.6-50 MG TAB PO SCH ×2 (08:30→19:46)
[2019-08-22] MEDS: Sulfameth/Trimethoprim DS 800-160mg TAB PO SCH ×2 (08:30→19:46)
--- NOTE | 2019-08-22 13:05 | PRG ---
DATE OF SERVICE: 08/22/2019 SUBJECTIVE: No acute events overnight. No further bleeding episodes. Continues to have right-sided abdominal pain unchanged from yesterday. He denies headaches, vision changes, chest pains, or difficulty breathing. REVIEW OF SYSTEMS: 10-point review of systems is otherwise negative. OBJECTIVE: GENERAL: Afebrile, tachycardic, in no acute distress, conversant. LUNGS: Unlabored breathing. Symmetric chest expansion. HEART: Regular rate and rhythm. ABDOMEN: Soft, appropriately tender given his underlying mass, nondistended. : Holbrook catheter in good position draining clear urine on very slow CBI. LABORATORY DATA: Reviewed. Hemoglobin 7.7, down from 9.1 yesterday. Creatinine stable at 1.58. 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 I spent 45 minutes discussing this situation with the patient and also with his sister by phone. At this point, he is not interested in surgical intervention, which I think is hagen as he is unlikely to survive surgery of that magnitude. He is very seriously considering hospice care, which I think is reasonable. I do not see a path forward that does not lead to his demise in the very possibly near future. I did advise him that he needs to seriously consider his wishes for medical care. He is wanting for now to have some interventions such as chest compressions, but not ventilation. I advised him that past measures are very difficult to follow and he needs to consider what quality of life he might have afterwards. He does seem to understand this and is going to consider further ICU as he was not ready to make a decision. I also advised him to consider if he wants us to transfuse him as his hemoglobin drops or not. Job ID: [id number]
--- NOTE | 2019-08-22 15:05 | PQF ---
CLINICAL DOCUMENTATION CLARIFICATION FORM: Patient Name: PATT IYER Date of : 1945 Account: [id number] Admit Date: 08/19/2019 Facility: [facility] - [place] Dear Dr. Grace Hayes/ Attending Dr. Sav Pineda Date / Time: 08/22/2019 Please exercise your independent, professional judgment in responding to the clarification form. Clinical indicators are provided on the bottom of this form for your review. Please check appropriate box(es): [ x ] Sepsis due to UTI due to indwelling smith. [ ] Sepsis due to UTI not due to indwelling smith. [ ] Other diagnosis [ ] Unable to determine In addition, please specify: Present on Admission (POA): [ x ] Yes [ ] No [ ] Unable to determine For continuity of documentation, please document condition throughout progress notes and discharge summary. Thank You. To be completed by CDI/Coding staff for physician review: CLINICAL INDICATORS - SIGNS / SYMPTOMS / LABS / RESULTS AND LOCATION IN [facility]&P 08/18 ([place]): Sepsis 2/2 UTI. Pt met sepsis criteria d/t WBC 13.3 and tachycardia with source. Due to hx UTI 2/2 indwelling smith , acute lower quadrant abd pain and UA positive for bacteria, pt placed on Rocephin for UTI 08/19 ([place]) Sepsis 2/2 UTI Culture shows E Coli RISK FACTORS / RESULTS AND LOCATION IN [facility]&P 08/18 ([place]) The pt has an indwelling smith catheter. PMH: Renal cell carcinoma bilaterally, thrombus in IVC, HTN. A/P: Sepsis 2/2 UTI. hx UTI 2/2 indwelling smith TREATMENTS / RESULTS AND LOCATION IN [facility]&P 08/18 ([place]) Begin rocephin 1g once daily Urology consult 08/19 Thank you, Ivanna Bailey RN, BSN [email or web address] This is a permanent part of the Medical Record MTDD
[2019-08-22] MEDS: Cyclobenzaprine 10 MG TAB PO PRN (19:45)
[2019-08-22] MEDS: Melatonin 3 MG TAB PO SCH (19:46)
--- NOTE | 2019-08-23 06:00 | PDOC.FM ---
- Subjective Subjective: Complains of persistent back pain this am from laying in bed. He has not tried to sit up in the chair since he's been here. - Objective MAR Reviewed: Yes Vital Signs & Weight: Vital Signs (12 hours) Temp Pulse Resp BP Pulse Ox 08/22/19 19:45 98.8 F 109 H 18 119/71 98 Weight Admit Weight 92.85 kg Weight 92.85 kg I&O: 08/21/19 08/22/19 08/23/19 06:59 06:59 06:59 Intake Total 720 1360 1040 Output Total 800 3150 3150 Balance -80 -3320 -2369 Result Diagrams: 08/22/19 03:33 08/22/19 03:33 Phys Exam - Physical Examination Constitutional: NAD HEENT: moist MMs Neck: supple, full ROM Respiratory: no wheezing, no rales, no rhonchi, clear to auscultation bilateral Cardiovascular: RRR, no significant murmur Gastrointestinal: soft TTP Musculoskeletal: no edema, pulses present Neurological: non-focal Psychiatric: normal affect Skin: no rash, normal turgor Dx/Plan (1) Renal cell carcinoma Code(s): C64.9 - MALIGNANT NEOPLASM OF UNSP KIDNEY, EXCEPT RENAL PELVIS Status : Acute (2) IVC thrombosis Code(s): I82.220 - ACUTE EMBOLISM AND THROMBOSIS OF INFERIOR VENA CAVA Status : Acute (3) Acute blood loss anemia Code(s): D62 - ACUTE POSTHEMORRHAGIC ANEMIA Status: Acute (4) Hematuria Code(s): R31.9 - HEMATURIA, UNSPECIFIED Status: Acute (5) GERD (gastroesophageal reflux disease) Code(s): K21.9 - GASTRO-ESOPHAGEAL REFLUX DISEASE WITHOUT ESOPHAGITIS Status: Acute (6) HLD (hyperlipidemia) Code(s): E78.5 - HYPERLIPIDEMIA, UNSPECIFIED Status: Acute (7) Intractable abdominal pain Code(s): R10.9 - UNSPECIFIED ABDOMINAL PAIN Status: Acute (8) Hematochezia Code(s): K92.1 - MELENA Status: Acute (9) Hypertension Code(s): I10 - ESSENTIAL (PRIMARY) HYPERTENSION Status: Acute Qualifiers: Hypertension type: essential hypertension Qualified Code(s): I10 - Essential (primary) hypertension (10) Renal mass Code(s): N28.89 - OTHER SPECIFIED DISORDERS OF KIDNEY AND URETER Status: Acute - Plan Plan: Gross hematuria, bilateral renal cell carcinoma -Urology consulted, appreciate recommendations. -Palliative care consulted for complex decision making and support. -Oncology consulted, appreciate recommendations. -On continuous bladder irrigation. -After much discussion,the patient has elected to be DNAR. He also is now interested in Hospice. He already has services established with [facility]. PCRN sent information yesterday. If stable today, we will try to d/c home with hospice. Thrombus vs mass in IVC -CT A/P showed progression of IVC thrombus. UTI -Bactrim 08/20 for 7 days. -[X] Rocephin 1g qday (08/18-08/20) Pain 2/2 renal cell carcinoma, at baseline -Patient on Tramadol and flexeril PRN at home. Will restart home regimen today and add bowel regimen. Hematochezia, resolved. Hyponatremia, improving Hyperkalemia, resolved HLD -Continue home meds Anxiety -Continue home meds GERD -Continue home meds HTN Patient states he does not take BP medications anymore -Monitor PCP: Adrienne Code: DNAR DVT ppx: SCDs GI ppx: Protonix Dispo: Guarded, inpatient on oncology floor Addendum - Attending - Attending Attestation Date/Time: 08/23/19 7192 I personally evaluated the patient and discussed the management with Dr. Hayes. I agree with the History, Examination, Assessment and Plan documented above with any addition or exceptions noted below. D/c hospice today.
[2019-08-23 07:49] VITALS: BP 109/66; TEMP 98.7
[2019-08-23] MEDS ORDERED: Acetaminophen 325 MG TAB PO PRN (09:02)
[2019-08-23] MEDS: Senokot S 8.6-50 MG TAB PO SCH (09:04)
[2019-08-23] MEDS: Sulfameth/Trimethoprim DS 800-160mg TAB PO SCH (09:05)
[2019-08-23] MEDS ORDERED: Acetaminophen 500 MG TAB PO SCH (09:15)
--- NOTE | 2019-08-24 00:37 | DIS ---
DATE OF ADMISSION: 08/19/2019 DATE OF DISCHARGE: 08/23/2019 RESIDENT: Grace Hayes MD. ADMITTING ATTENDING: Gamaliel Neal MD. DISCHARGE ATTENDING: Sav Pineda MD CONSULTS: 1. Hematology/Oncology, Dr. Peng. 2. Urology, Dr. Brower. 3. Cardiovascular surgery, Dr. Bowers. 4. Palliative care and Hospice. PROCEDURE: Irrigation of Holbrook catheter. PRIMARY DIAGNOSIS: Gross hematuria secondary to bilateral renal cell carcinoma. SECONDARY DIAGNOSES: 1. Sepsis secondary to indwelling Holbrook catheter urinary tract infection. 2. Intractable pain secondary to cancer. 3. Hematochezia. 4. 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 5. Hyponatremia. 6. Hyperkalemia. 7. Hyperlipidemia. 8. Anxiety. 9. Gastroesophageal reflux disease. 10. Hypertension. DISCHARGE MEDICATIONS: Nexium, Swetha, glucosamine, multivitamin, simvastatin, Ventolin inhaler, Tylenol, Flexeril, guaifenesin, melatonin, MiraLAX, Senakot, Bactrim 1 tab b.i.d. for 5 more days, tramadol. DISCONTINUED MEDICATIONS: None. HISTORY OF PRESENT ILLNESS/HOSPITAL COURSE: Mr. Moscoso is a 74-year-old gentleman with a history of bilateral renal cell carcinoma, who presented to the emergency department for evaluation of gross hematuria and abdominal pain. He has an indwelling Holbrook catheter and he started seeing blood in it since yesterday. He began passing larger clots that made him concerned. He believes he had an episode of blood in his bowel movement yesterday, but was unable to determine if it was in the stool or if it was just due to the bleeding from his bladder. His abdominal pain and constipation have been significantly worsening over the last several days. He has been nauseous and vomiting. He vomited 4 times in the 24 hours prior to admission. He is on chemotherapy and was due for chemotherapy the week after he was admitted to the hospital. Throughout his hospital stay, his pain was controlled with his home regimen of tramadol and Flexeril. We added on Tylenol on occasion. A CT scan was obtained, which showed progression of the thrombus in his inferior vena cava. We consulted cardiovascular surgery for an opinion on it and they actually believe that it may be progression of a mass from his renal cell carcinoma rather than a blood clot or thrombus. Dr. Brower, his urologist was consulted and recommended that he decide between hospice or palliative care measures or being transferred to [facility] for more aggressive and invasive surgical intervention. The patient vehemently declined transfer to [facility] stating that he does not believe his body would make it through an invasive surgery nor does he want to be in [place] away from his family. Over the course of his hospital stay, multiple discussions were had with palliative Care and ultimately he decided he would rather spend his remaining life at home, if possible and would like to go home with hospice care. DISPOSITION: Guarded. DISCHARGE INSTRUCTIONS: Location: Home. Diet: Regular. Activity: Ad belen. Followup: Follow up with primary care physician as needed for hospice care physician. MORE THAN 30 MINUTES WAS SPENT DISCUSSING DISCHARGE PLANNING WITH THE PATIENT. Job ID: [id number] [facility]
== END 2019-08-23 17:05 | disposition hospice, home (50) | DRG 698 ==
LOC: ERS 09:45 → ONC 17:00
PROVIDERS: ADMIT Student in an Organized Health Care Education/Training Program; ATTEND Student in an Organized Health Care Education/Training Program
DX: T83.511A Infection and inflammatory reaction due to indwelling urethral catheter, initial encounter (principal); A41.9 Sepsis, unspecified organism; C64.2 Malignant neoplasm of left kidney, except renal pelvis; C64.1 Malignant neoplasm of right kidney, except renal pelvis; K92.1 Melena; E87.1 Hypo-osmolality and hyponatremia; Z51.5 Encounter for palliative care; R31.0 Gross hematuria; N39.0 Urinary tract infection, site not specified; G89.3 Neoplasm related pain (acute) (chronic); E87.5 Hyperkalemia; E78.5 Hyperlipidemia, unspecified; K21.9 Gastro-esophageal reflux disease without esophagitis; F41.9 Anxiety disorder, unspecified; I10 Essential (primary) hypertension; K59.00 Constipation, unspecified; Z98.42 Cataract extraction status, left eye; Z98.41 Cataract extraction status, right eye; Z87.891 Personal history of nicotine dependence
CPT/HCPCS: 36415; 74177; 80048; 80053; 81003; 81015; 83690; 84145; 85014; 85018; 85025; 85049; 85610; 85730; 87040; 87077; 87086; 87186; 96361; 96374; 96376; C9113; J0696; J2270; J2405; J3490; Q9967